=== PATIENT | female | born 1970 | race Caucasian/White ===

== ENCOUNTER 2020-10-27 07:47 | Inpatient (IN) ==
[2020-10-27] MEDS ORDERED: ONDANSETRON INJ 2 MG/ML 2 ML VIAL IV STA (07:54)
[2020-10-27] MEDS ORDERED: MoRPHine SULFATE 4 MG/ML 1 ML CARP\\VIAL IV PRN (07:54)
--- NOTE | 2020-10-27 07:59 | Emergency Department Note ---
Impression & Plan Closed fracture of left hip, Fall ED Provider Note NAME: ROSA ISELA CURTIS AGE: 50 SEX: F : 1970 ARRIVES VIA: Ambulance INFORMANT: Patient, prehospital personnel ED PROVIDER(S): Manny Cheng DO CHIEF COMPLAINT: Left hip pain HPI: The patient is a 50-year-old female who presented to the emergency department by ambulance for an evaluation of left-sided hip pain. The patient states that she had a trip and fall last evening at approximately 7 PM. She fell while she was with her dog. She fell onto her left hip directly. She did not strike her head. She has no loss of consciousness or headache. She denies having any neck pain or back pain. She was helped into her home by a neighbor. She states that she was able to bear weight initially but has since had worsening pain in the left hip. She was unable to bear weight this morning and called 911. The patient arrived via ambulance. The patient was splinted in comfort and was feeling much better prior to arrival. The patient does have a history of Parkinson's. She states that she does have a history of falls and fell on that hip 2 weeks ago. She denies having any numbness in the lower extremity. She has had no fever or cough. She has had no exposure to COVID-19 as far she knows. ROS: See above HPI for pertinent positives & negatives. A total of 10 systems reviewed and were otherwise negative. PAST MEDICAL HISTORY: See Below PAST SURGICAL HISTORY: See Below FAMILY HISTORY: See Below SOCIAL HISTORY: See Below HOME MEDICATIONS: See Below ALLERGIES: See Below VITALS: See Below PHYSICAL EXAMINATION: GENERAL: The patient is awake and alert. She is somewhat anxious appearing and appears to be uncomfortable. EYES: The conjunctivae are clear. The pupils are round and reactive. EARS, NOSE, MOUTH AND THROAT: The nose is without any evidence of any deformity. Mucous membranes are moist. Tongue is midline. NECK: The neck is nontender and supple. RESPIRATORY: Normal respiratory effort is noted there is no evidence of wheezing rhonchi or rales CARDIOVASCULAR: Regular rate and rhythm noted there no murmurs rubs or gallops normal S1 normal S2. GASTROINTESTINAL: The abdomen is soft. Abdomen is nontender. BACK: No midline tenderness or or step-off noted range of motion in flexion extension as well as rotation no signs of muscle spasm noted MUSCULOSKELETAL/EXTREMITIES: The left lower extremity is shortened. The patient has pain with range of motion testing of the left hip including internal and external rotation. There is no palpable tenderness of the left knee or left ankle. SKIN: There is no obvious evidence of any rash. Pulses are symmetric in both feet. NEUROLOGIC: Patient is awake alert and oriented x3. MEDICAL DECISION MAKING: The patient is a 50-year-old female who presented to the emergency department by ambulance after a fall. The patient fell onto her left hip sustaining a left hip fracture. She was treated with pain medication in the emergency department. I discussed the patient's laboratory and radiographic studies with her. On reevaluation she was significantly improved. [facility] They have agreed to evaluate the patient in the emergency department for further management and disposition. Likely the patient will have orthopedic evaluation and will likely require surgical intervention. She was agreeable with this plan. Triage Nursing notes reviewed. Prior medical records reviewed Vital Signs: reviewed and remarkable for elevated blood pressure. Differential diagnosis: Fracture, subluxation, dislocation, contusion, ligamentous injury, neurovascular, compartment syndrome, rhabdomyolysis, as well as other pathologies. ER treatment provided: See below Diagnostics interpreted by me: ECG: EKG was obtained in the emergency department. My interpretation is normal sinus rhythm at 85 bpm. There was no ectopy. Lateral T wave flattening was noted. This was compared to a tracing from July 15, 2019. No significant changes were noted. Cardiac Monitoring: An order was placed for continuous cardiac monitoring. The monitor shows a rate of 82 bpm with sinus rhythm. Laboratory studies: As stated above and show below. Imaging studies: See below Consultation(s): 0905: I discussed this case with Nicki who [facility]. Past Med/Surg History Medical History (Updated 10/27/20 @ 10:56 by Manny Cheng DO) ADD (attention deficit disorder) Bipolar disorder Cervical radiculopathy Cervicalgia Chronic migraine without aura Cochlear implant in place Depression Endometriosis Fibromyalgia Gastroesophageal reflux Hypothyroidism Myalgia and myositis Surgical History History of arthroscopy of shoulder History of cholecystectomy History of colonoscopy History of laparoscopy History of mastoidectomy History of oophorectomy S/P total abdominal hysterectomy Social History Smoking Status: Never smoker Hx Alcohol Use: Yes Hx Substance Use: No Preferred Language: Chadian Communication Ability: Effective Visual Impairment: No Limitations Hearing Ability: Normal Beliefs That Will Affect Care: None marital status: Current Living Situation: Alone current occupational status: disabled Feels Safe at Home: Yes Allergies Allergies Allergy/AdvReac Type Severity Reaction Status Date / Time venlafaxine Allergy Unknown itchiness Verified 10/27/20 08:22 Home Meds Home Medications Medication Instructions Recorded Confirmed alprazolam 0.25 mg tablet 0.125 mg PO TID tab 09/12/18 10/27/20 cholecalciferol (vitamin D3) 25 1,000 units PO QAM 09/12/18 10/27/20 mcg (1,000 unit) capsule dextroamphetamine 30 mg tablet 30 mg PO QAM tab 09/12/18 10/27/20 estradiol 1 mg tablet 1 mg PO QAM 09/12/18 10/27/20 levothyroxine 100 mcg capsule 100 mcg PO QAM 09/12/18 10/27/20 multivitamin 1 tab PO QAM 09/12/18 10/27/20 polyethylene glycol 3350 17 gram 17 gm PO UD PRN 09/12/18 10/27/20 oral powder packet rizatriptan 10 mg tablet 10 mg PO Q2H PRN 09/12/18 10/27/20 denosumab 60 mg/mL subcutaneous 60 mg SQ .q 6 month ml 11/26/18 10/27/20 syringe aripiprazole 10 mg tablet 10 mg PO HS 10/18/19 10/27/20 citalopram 40 mg tablet 40 mg PO QAM tab 04/27/20 10/27/20 atorvastatin 20 mg tablet 20 mg PO HS 07/29/20 10/27/20 calcium carbonate-vitamin D3 1 tab PO QAM 10/27/20 10/27/20 [Calcium + D] Results & Data (ED) Vital Signs Vital Signs - 24 hr 10/27/20 07:54 10/27/20 07:56 10/27/20 07:58 Temperature 36.7 C Temperature Source Oral Pulse Rate 93 H 80 92 H Respiratory Rate 22 13 Respiratory Effort / Characteristics Non-Labored Respiratory Depth Normal Respiratory Pattern Regular Blood Pressure 145/67 H 145/67 H Blood Pressure Mean 93 93 Blood Pressure Position Sitting Pulse Oximetry 100 Oxygen Delivery Method Room Air Sepsis Recent Fever Within 48 Hours No Sepsis New/Unexplained Change in Mental Status No Sepsis Action Taken by Nursing No Action Required 10/27/20 08:00 10/27/20 09:52 10/27/20 10:00 Temperature Temperature Source Pulse Rate 84 88 83 Respiratory Rate 17 15 19 Respiratory Effort / Characteristics Respiratory Depth Respiratory Pattern Blood Pressure Blood Pressure Mean Blood Pressure Position Pulse Oximetry Oxygen Delivery Method Sepsis Recent Fever Within 48 Hours Sepsis New/Unexplained Change in Mental Status Sepsis Action Taken by Nursing 10/27/20 10:01 10/27/20 10:02 10/27/20 10:30 Temperature Temperature Source Pulse Rate 82 78 Respiratory Rate 18 16 Respiratory Effort / Characteristics Respiratory Depth Respiratory Pattern Blood Pressure 142/90 H Blood Pressure Mean 110 Blood Pressure Position Pulse Oximetry Oxygen Delivery Method Room Air Sepsis Recent Fever Within 48 Hours Sepsis New/Unexplained Change in Mental Status Sepsis Action Taken by [facility] Medications Current Medication List: was personally reviewed by me Laboratory Data Attestation: I reviewed the patient's lab results. Result diagrams: 10/27/20 09:50 10/27/20 09:50 Lab Results 10/27/20 10/27/20 10/27/20 Range/Units 09:50 09:50 09:50 WBC 13.35 H (4.8-10.8) K/uL RBC 4.27 (4.2-5.4) M/uL Hgb 12.8 (12.0-16.0) g/dL Hct 38.8 (37-47) % MCV 90.9 (80-100) fL MCH 30.0 (25-34) pg MCHC 33.0 (32-36) g/dL RDW Std Deviation 47.0 H (36.4-46.3) fL RDW Coeff of Jose 14.3 (11.5-14.5) % Plt Count 280 (130-400) K/uL MPV 10.1 (7.4-10.4) fL Immature Gran % (Auto) 0.1 % Neut % (Auto) 92.2 % Lymph % (Auto) 6.6 % [place] % (Auto) 1.1 % Eos % (Auto) 0.0 % Baso % (Auto) 0.0 % Neut # (Auto) 12.30 H (1.4-6.5) K/uL Lymph # (Auto) 0.88 L (1.2-3.4) K/uL [place] # (Auto) 0.15 (0.11-0.59) K/uL Eos # (Auto) 0.00 (0-0.5) K/uL Baso # (Auto) 0.00 (0-0.2) K/uL Immature Gran # (Auto) 0.02 (0.00-0.02) K/uL PT 10.3 (9.0-12.0) Seconds INR 1.0 (0.9-1.1) APTT 26.2 (21.0-31.0) Seconds PTT Ratio 0.9 Sodium 139 (136-145) mmol/L Potassium 4.5 (3.5-5.1) mmol/L Chloride 108 H (98-107) mmol/L Carbon Dioxide 25 (21-32) mmol/L Anion Gap 5.0 (3-11) BUN 13 (7-18) mg/dl Creatinine 1.01 (0.6-1.2) mg/dl Est Cr Clr Drug Dosing 60.3 ml/min Est GFR ( Amer) 75.2 Est GFR (Non-Af Amer) 64.9 BUN/Creatinine Ratio 12.4 (10-20) Glucose 121 H (70-99) mg/dl Calcium 8.8 (8.5-10.1) mg/dl Total Bilirubin 0.4 (0.2-1) mg/dl AST 18 (15-37) U/L ALT 19 (12-78) U/L Alkaline Phosphatase 154 H (45-117) U/L Troponin I < 0.015 (0-0.045) ng/ml Total Protein 7.8 (6.4-8.2) gm/dl Albumin 3.1 L (3.4-5.0) gm/dl Globulin 4.7 H (2.5-4.0) gm/dl Albumin/Globulin Ratio 0.7 L (0.9-2) Lipase 51 L (73-393) U/L SARS-CoV-2 Ag (Rapid) (Negative) 10/27/20 Range/Units 10:38 WBC (4.8-10.8) K/uL RBC (4.2-5.4) M/uL Hgb (12.0-16.0) g/dL Hct (37-47) % MCV (80-100) fL MCH (25-34) pg MCHC (32-36) g/dL RDW Std Deviation (36.4-46.3) fL RDW Coeff of Jose (11.5-14.5) % Plt Count (130-400) K/uL MPV (7.4-10.4) fL Immature Gran % (Auto) % Neut % (Auto) % Lymph % (Auto) % [place] % (Auto) % Eos % (Auto) % Baso % (Auto) % Neut # (Auto) (1.4-6.5) K/uL Lymph # (Auto) (1.2-3.4) K/uL [place] # (Auto) (0.11-0.59) K/uL Eos # (Auto) (0-0.5) K/uL Baso # (Auto) (0-0.2) K/uL Immature Gran # (Auto) (0.00-0.02) K/uL PT (9.0-12.0) Seconds INR (0.9-1.1) APTT (21.0-31.0) Seconds PTT Ratio Sodium (136-145) mmol/L Potassium (3.5-5.1) mmol/L Chloride (98-107) mmol/L Carbon Dioxide (21-32) mmol/L Anion Gap (3-11) BUN (7-18) mg/dl Creatinine (0.6-1.2) mg/dl Est Cr Clr Drug Dosing ml/min Est GFR ( Amer) Est GFR (Non-Af Amer) BUN/Creatinine Ratio (10-20) Glucose (70-99) mg/dl Calcium (8.5-10.1) mg/dl Total Bilirubin (0.2-1) mg/dl AST (15-37) U/L ALT (12-78) U/L Alkaline Phosphatase (45-117) U/L Troponin I (0-0.045) ng/ml Total Protein (6.4-8.2) gm/dl Albumin (3.4-5.0) gm/dl Globulin (2.5-4.0) gm/dl Albumin/Globulin Ratio (0.9-2) Lipase (73-393) U/L SARS-CoV-2 Ag (Rapid) Negative (Negative) Administered Medications Morphine Sulfate (Morphine Sulfate 4 Mg/Ml 1 Ml Carp\Vial) 4 mg IV Q30M PRN PRN Reason: Pain Stop: 11/10/20 07:53 Last Admin: 10/27/20 08:07 Dose: 4 mg Documented by: [id number] Discontinued Medications Sodium Chloride (Nss) 500 mls @ 999 mls/hr IV .Q31M HEYDI Stop: 10/27/20 08:30 Last Infusion: 10/27/20 08:38 Dose: 0 mls/hr Documented by: [id number] Admin: 10/27/20 08:07 Dose: 999 mls/hr Documented by: [id number] Ondansetron HCl (Ondansetron Inj 2 Mg/Ml 2 Ml Vial) 4 mg IV NOW STA Stop: 10/27/20 07:55 Last Admin: 10/27/20 08:07 Dose: 4 mg Documented by: [id number] Imaging Data Radiologist's Impression: Patient: ROSA ISELA CURTIS Admit Date: 10/27/20 MR#: [id number] Address1: [address] [place] [address] Acct ID:[id number] Address2: Date: 1970 [facility] Zip: [place] [address] Age: 50 Location: ED Sex: F Room/Bed: Att Phy: Diagnosis: FALL Prerna Phy: Shonda Coles MD Service Date: 10/27/20 [facility] Phy: Interpreting Phy: Moses Pereira MD Admit Phy: Ordering Phy: Manny Cheng DO cc: ~ XR chest 1V not portable HISTORY: Left hip fracture. Preop. COMPARISON: Chest 07/15/2019. FINDINGS: The lungs are clear. Cardiac silhouette is normal in size. No pleural effusions. No pneumothorax. IMPRESSION: No acute process. ACT 112: Negative or not required by law. Electronically signed by: Moses Pereira M.D. 10/27/2020 8:43 AM Dictated: 10/27/20841 Transcribed: 10/27/20841 Patient: ROSA ISELA CURTIS Admit Date: 10/27/20 MR#: [id number] Address1: [address] [place] [address] Acct ID:[id number] Address2: Date: 1970 [facility] Zip: [place] [id number] Age: 50 Location: ED Sex: F Room/Bed: Att Phy: Diagnosis: FALL Prerna Phy: Shonda Coles MD Service Date: 10/27/20 [facility] Phy: Interpreting Phy: Moses Pereira MD Admit Phy: Ordering Phy: Manny Cheng, DO cc: ~ XR hip LT 2V w pelvis CLINICAL HISTORY: Fall.Left hip pain. COMPARISON STUDY: Left hip 10/19/2020. FINDINGS: Mildly displaced left femoral neck fracture. This demonstrates up to 11 mm of superior displacement. No dislocation. The visualized pelvic bones and right hip are intact. IMPRESSION: Mildly displaced left femoral neck fracture. ACT 112: Negative or not required by law. Electronically signed by: Moses Pereira M.D. 10/27/2020 8:42 AM Dictated: 10/27/20840 Transcribed: 10/27/20840 Blood Pressure Blood Pressure Findings: Elevated blood pressure Blood Pressure Disposition: further management by hospitalist Discharge Plan Visit Data Chief Complaint: Fall ED Provider: Manny Cheng Discharge Problem: Closed fracture of left hip, Fall Patient Disposition: Being Evaluated by Hospitalist Condition: Good Forms Stand Alone Forms: [facility] [employer] Prescriptions Prescriptions: No Action atorvastatin [Lipitor] 20 mg tablet 20 mg PO HS RF: 0 rizatriptan 10 mg tablet 10 mg PO Q2H PRN (Reason: Migraine Headache) RF: 0 alprazolam [Xanax] 0.25 mg tablet 0.125 mg PO TID RF: 0 cholecalciferol (vitamin D3) 1,000 unit capsule 1,000 units PO QAM RF: 0 dextroamphetamine 30 mg tablet 30 mg PO QAM RF: 0 estradiol 1 mg tablet 1 mg PO QAM RF: 0 levothyroxine 100 mcg capsule 100 mcg PO QAM RF: 0 multivitamin tablet 1 tab PO QAM RF: 0 polyethylene glycol 3350 [Miralax] 17 gram powder in packet 17 gm PO UD PRN (Reason: Constipation) RF: 0 citalopram 40 mg tablet 40 mg PO QAM RF: 0 denosumab [Prolia] 60 mg/mL syringe 60 mg SQ .q 6 month RF: 0 aripiprazole [Abilify] 10 mg tablet 10 mg PO HS RF: 0 calcium carbonate-vitamin D3 [Calcium + D] 600 mg(1,500mg) -200 unit Tablet 1 tab PO QAM RF: 0 Referrals Referrals: Shonda Coles MD [Primary Care Provider] - Discharge Problem: Closed fracture of left hip Qualifiers: Encounter type: initial encounter Qualified Code(s): S72.002A - Fracture of unspecified part of neck of left femur, initial encounter for closed fracture Fall Qualifiers: Encounter type: initial encounter Qualified Code(s): W19.XXXA - Unspecified fall, initial encounter
[2020-10-27] MEDS ORDERED: SODIUM CHLORIDE 0.9% 500 ML IV SCH (08:00)
--- NOTE | 2020-10-27 08:44 | XRay Report ---
XR chest 1V not portable HISTORY: Left hip fracture. Preop. COMPARISON: Chest 07/15/2019. FINDINGS: The lungs are clear. Cardiac silhouette is normal in size. No pleural effusions. No pneumot horax. IMPRESSION: No acute process. ACT 112: Negative or not required by law. Electronically signed by: Moses Pereira M.D. 10/27/2020 8:43 AM
--- NOTE | 2020-10-27 08:44 | XRay Report ---
XR hip LT 2V w pelvis CLINICAL HISTORY: Fall.Left hip pain. COMPARISON STUDY: Left hip 10/19/2020. FINDINGS: Mildly displaced left femoral neck fracture. This demonstrates up to 11 mm of superior disp lacement. No dislocation. The visualized pelvic bones and right hip are intact. IMPRESSION: Mildly displaced left femoral neck fracture. ACT 112: Negative or not required by law. Electronically signed by: Moses Pereira M.D. 10/27/2020 8:42 AM
[2020-10-27 10:00] LABS: Hematocrit (blood only) 38.8 % (37-47); Hemoglobin 12.8 g/dL (12.0-16.0); Immature Granulocytes # (auto) 0.02 K/uL (0.00-0.02); Immature Granulocytes % (auto) 0.1 %; Lymphocytes # (auto) 0.88 K/uL (1.2-3.4); Lymphocytes % (auto) 6.6 %; Mean Corpuscular Volume 90.9 fL (80-100); Mean Platelet Volume 10.1 fL (7.4-10.4); Monocytes # (auto) 0.15 K/uL (0.11-0.59); Monocytes % (auto) 1.1 %; Neutrophils % (auto) 92.2 %; Platelet Count 280 K/uL (130-400); RDW Coefficient of Variation 14.3 % (11.5-14.5); Red Blood Count 4.27 M/uL (4.2-5.4); White Blood Count 13.35 K/uL (4.8-10.8)
[2020-10-27 10:14] LABS: Partial Thromboplastin Ratio 0.9; Partial Thromboplastin Time 26.2 Seconds (21.0-31.0); Prothrombin Time 10.3 Seconds (9.0-12.0)
[2020-10-27 10:19] LABS: Alanine Aminotransferase 19 U/L (12-78); Albumin Level 3.1 gm/dl (3.4-5.0); Aspartate Aminotransferase 18 U/L (15-37); BUN Creatinine Ratio 12.4 (10-20); Blood Urea Nitrogen 13 mg/dl (7-18); Calcium 8.8 mg/dl (8.5-10.1); Carbon Dioxide 25 mmol/L (21-32); Chloride 108 mmol/L (98-107); Creatinine Clr Calc Pharmacy 60.3 ml/min; Est GFR (African American) 75.2; Est GFR (Non-African American) 64.9; Glucose 121 mg/dl (70-99); Lipase 51 U/L (73-393); Potassium 4.5 mmol/L (3.5-5.1); Sodium 139 mmol/L (136-145)
[2020-10-27 10:23] LABS: Albumin Globulin Ratio 0.7 (0.9-2); Alkaline Phosphatase 154 U/L (45-117); Bilirubin,Total 0.4 mg/dl (0.2-1); Globulin 4.7 gm/dl (2.5-4.0); Total Protein 7.8 gm/dl (6.4-8.2); Troponin I < 0.015 ng/ml (0-0.045)
--- NOTE | 2020-10-27 10:34 | History & Physical Report ---
Date of Service October 27, 2020 Assessment & Plan (1) Closed fracture of left hip: s/ p fall -tripped and lost balanced landed on her left side . Xray of hip Left femoral neck non displaced fall Ortho eval appreciated plan for possible Hip surgery /ORIF tomorrow pt has acceptable risk to proceed for scheduled hip surgery no underlying cardiac or pulmonary disease /no other testing or imaging needed for pre op or anesthesia clearance . Hypothyroidism : cont Levothyroxine DVT PROPHYLAXIS : SCD and teds will need pharmacological anticoagulation post hip surgery as per orthopedics protocol CODE status : full code DISPOSITION : PT/OT eval post hip surgery discharge planning will be determined depending on pt's recovery after orthopedics surgery History of Present Illness Chief Complaint: fall /pain on left hip Primary Care Provider: Shonda Coles MD This is a a 50-year-old female with past medical history of hypothyroidism, chronic migraine, GERD, presents to the ER with complaint of acute pain on the left hip. pt sustained a fall on left side yesterday afternoon as she was walking her dog and tripped , lost her balance, landed on her left side . in ER Xray of hip mildly displaced left femoral neck fracture . pt sustained a fall on left hip approx a week ago , was seen at ER , images shows no fracture , had pain and discomfort on left hip no complain of chest pain , SOB , no dizzy spell or lightheadedness no fever or chills pt is admitted to medical floor Ortho eval requested for possible surgery of left femoral neck fx Allergies Allergy/AdvReac Type Severity Reaction Status Date / Time venlafaxine Allergy Unknown itchiness Verified 10/27/20 08:22 Home Medications Medication Instructions Recorded Confirmed Type alprazolam 0.25 mg tablet 0.125 mg PO TID tab 09/12/18 10/27/20 History cholecalciferol (vitamin D3) 25 1,000 units PO QAM 09/12/18 10/27/20 History mcg (1,000 unit) capsule dextroamphetamine 30 mg tablet 30 mg PO QAM tab 09/12/18 10/27/20 History estradiol 1 mg tablet 1 mg PO QAM 09/12/18 10/27/20 History levothyroxine 100 mcg capsule 100 mcg PO QAM 09/12/18 10/27/20 History multivitamin 1 tab PO QAM 09/12/18 10/27/20 History polyethylene glycol 3350 17 gram 17 gm PO UD PRN 09/12/18 10/27/20 History oral powder packet rizatriptan 10 mg tablet 10 mg PO Q2H PRN 09/12/18 10/27/20 History denosumab 60 mg/mL subcutaneous 60 mg SQ .q 6 month ml 11/26/18 10/27/20 History syringe aripiprazole 10 mg tablet 10 mg PO HS 10/18/19 10/27/20 History citalopram 40 mg tablet 40 mg PO QAM tab 04/27/20 10/27/20 History atorvastatin 20 mg tablet 20 mg PO HS 07/29/20 10/27/20 History calcium carbonate-vitamin D3 1 tab PO QAM 10/27/20 10/27/20 History [Calcium + D] Past Med/Surg History Medical History ADD (attention deficit disorder) Bipolar disorder Cervical radiculopathy Cervicalgia Chronic migraine without aura Cochlear implant in place Depression Endometriosis Fibromyalgia Gastroesophageal reflux Hypothyroidism Myalgia and myositis Surgical History History of arthroscopy of shoulder History of cholecystectomy History of colonoscopy History of laparoscopy History of mastoidectomy History of oophorectomy S/P total abdominal hysterectomy Social History Smoking Status: Never smoker Hx Alcohol Use: Yes Alcohol type: wine Hx Substance Use: No Preferred Language: Bangladeshi Communication Ability: Effective Visual Impairment: No Limitations Hearing Ability: Normal Beliefs That Will Affect Care: None marital status: Current Living Situation: Alone current occupational status: disabled Other Information That Helps Us Care for You: No Feels Safe at Home: Yes Safety Concerns: Feels Safe At This Time Assistive Devices: None Assistive Devices Comment: Cochlear implent left, not with pt. Review of Systems Review of Systems: All systems reviewed & are unremarkable except as noted in HPI & below Constitutional: no fever and no chills Respiratory: no cough and no dyspnea on exertion Cardiovascular: no chest pain, no orthopnea and no syncope Musculoskeletal: as per Subjective / HPI left hip pain s/p fall Physical Exam Constitutional: WD/WN, vitals as above Eyes: PERRL, conjunctivae normal, anicteric sclerae ENMT: external ear and nose normal, oropharynx normal Neck: trachea midline, no thyromegaly Respiratory: normal respiratory effort, lungs clear to auscultation Cardiovascular: RRR, no murmur, no edema Gastrointestinal (Abdomen): normal bowel sounds, soft, nontender, no hepatosplenomegaly Musculoskeletal: Hip: + limited ROM of hip (left hip pain ) Skin: no rashes, warm and dry Neurologic: PERRL, EOMI, accommodation nl, no face palsy, no dysarthria Psychiatric: A+Ox3, euthymic affect Results & Data Results & Data ([facility]) Vital Signs (Past 12 Hours) Vital Signs Temp Pulse Resp BP Pulse Ox 10/27/20 07:54 36.7 C 93 H 22 145/67 H 100 Code Status & VTE Plan VTE Prophylaxis Plan VTE Prophylaxis will be ordered: Yes (1) Closed fracture of left hip Encounter type: initial encounter Qualified Code(s): S72.002A - Fracture of unspecified part of neck of left femur, initial encounter for closed fracture
[2020-10-27] MEDS ORDERED: bisacodyL 10 MG SUPP PR PRN (12:10)
[2020-10-27] MEDS ORDERED: NALOXONE HCL 0.4 MG/1 ML VIAL/CARP IV PRN (12:10)
[2020-10-27] MEDS ORDERED: ONDANSETRON INJ 2 MG/ML 2 ML VIAL IV PRN (12:10)
[2020-10-27] MEDS ORDERED: RIZATRIPTAN BENZOATE 10 MG TAB PO PRN (12:10)
[2020-10-27] MEDS ORDERED: MAGNESIUM HYDROXIDE SUSP 30 ML UDC PO PRN (12:10)
[2020-10-27] MEDS ORDERED: POLYETHYLENE (MIRALAX) 17 GM PACK PO PRN (12:10)
[2020-10-27] MEDS: MoRPHine SULFATE 2 MG/ML CARP IV PRN ×2 (12:54→18:24)
[2020-10-27] MEDS: ALPRAZolam 0.25 MG TABLET PO SCH ×2 (13:32→20:23)
[2020-10-27] MEDS ORDERED: Nursing to Pharmacy Communication SCH (13:45)
[2020-10-27] MEDS: oxyCODONE HCL IR 5 MG TAB (IMMEDIATE RELEASE) PO PRN ×3 (14:54→23:28)
--- NOTE | 2020-10-27 15:12 | Orthopedic Consultation ---
Date of Consultation October 27, 2020 Assessment & Plan (1) Closed fracture of left hip: X-rays reviewed. Displaced left femoral neck fracture. I have discussed the case with the [facility] physicians. Patient will likely need a total hip replacement for this type of fracture. I will wait to hear from the physicians to finalize plans but will let the patient eat today and make her n.p.o. after midnight for possible surgery tomorrow. She seems fairly comfortable at this time. If worsening pain, consider 5 pounds of Walton's traction for left lower extremity. History of Present Illness Reason for Consultation: Left Displaced Femoral Neck Fracture Attending Physician: Liat Noel MD History of Present Illness 50-year-old white female who states that she had fallen approximately 1/2 to 2 weeks ago onto her left hip. She had pain several days with ambulation and was evaluated in the emergency room on the seventh of this month. X-rays were taken at that time and there was no fracture found. She was sent home on crutches, weightbearing as tolerated. She states she continued to have some pain in the hip but then inadvertently fell over her dog while trying to take him for a walk. After the fall, she had immediate worsening pain in her left hip and groin and was having difficulty ambulating. She was helped into her house and the ambulance was called. She was brought to the emergency room today where x-rays revealed a left displaced femoral neck fracture. We have been asked to see her for her hip fracture. Allergies Allergy/AdvReac Type Severity Reaction Status Date / Time venlafaxine Allergy Unknown itchiness Verified 10/27/20 08:22 Home Medications Medication Instructions Recorded Confirmed Type alprazolam 0.25 mg tablet 0.125 mg PO TID tab 09/12/18 10/27/20 History cholecalciferol (vitamin D3) 25 1,000 units PO QAM 09/12/18 10/27/20 History mcg (1,000 unit) capsule dextroamphetamine 30 mg tablet 30 mg PO QAM tab 09/12/18 10/27/20 History estradiol 1 mg tablet 1 mg PO QAM 09/12/18 10/27/20 History levothyroxine 100 mcg capsule 100 mcg PO QAM 09/12/18 10/27/20 History multivitamin 1 tab PO QAM 09/12/18 10/27/20 History polyethylene glycol 3350 17 gram 17 gm PO UD PRN 09/12/18 10/27/20 History oral powder packet rizatriptan 10 mg tablet 10 mg PO Q2H PRN 09/12/18 10/27/20 History denosumab 60 mg/mL subcutaneous 60 mg SQ .q 6 month ml 11/26/18 10/27/20 History syringe aripiprazole 10 mg tablet 10 mg PO HS 10/18/19 10/27/20 History citalopram 40 mg tablet 40 mg PO QAM tab 04/27/20 10/27/20 History atorvastatin 20 mg tablet 20 mg PO HS 07/29/20 10/27/20 History calcium carbonate-vitamin D3 1 tab PO QAM 10/27/20 10/27/20 History [Calcium + D] Patient History Medical History ADD (attention deficit disorder) Bipolar disorder Cervical radiculopathy Cervicalgia Chronic migraine without aura Cochlear implant in place Depression Endometriosis Fibromyalgia Gastroesophageal reflux Hypothyroidism Myalgia and myositis Surgical History History of arthroscopy of shoulder History of cholecystectomy History of colonoscopy History of laparoscopy History of mastoidectomy History of oophorectomy S/P total abdominal hysterectomy Social History Smoking Status: Never smoker Hx Alcohol Use: Yes Alcohol type: wine Hx Substance Use: No Preferred Language: Bhutanese Communication Ability: Effective Visual Impairment: No Limitations Hearing Ability: Normal Beliefs That Will Affect Care: None marital status: Current Living Situation: Alone current occupational status: disabled Other Information That Helps Us Care for You: No Feels Safe at Home: Yes Safety Concerns: Feels Safe At This Time Assistive Devices: None Assistive Devices Comment: Cochlear implent left, not with pt. Review of Systems Review of Systems: All systems reviewed & are unremarkable except as noted in HPI & below Physical Exam Physical Exam: Patient is a 50-year-old white female who appears her stated age. She is pleasant and cooperative. No acute distress. Alert and oriented x3. Focusing the exam on the left lower extremity, she has noticeable shortened left lower extremity compared to the right. No range of motion is done with the left hip due to fracture. She has some mild discomfort of her left knee on palpation but there is no noted swelling compared to the right. There is no areas abrasions or bruises. No obvious areas of bruising or abrasions on the left lateral hip but swelling is noted. She has good range of motion of her left ankle and toes. Of which are nontender. Right lower extremity is within normal limits and has good range of motion of her right hip, knee, and ankle. Upper extremities are unaffected at this time. She is nontender at the shoulders, elbows, and wrists. On palpation of her neck, she states she does have some cervical discomfort but is not accentuated from what she normally has. She denies any new thoracic or lumbar pain at this time. There is no gross motor or sensory loss seen at this time. Distal pulses are equal bilaterally of the upper and lower extremities. Results & Data ([facility]) Vital Signs (Past 12 Hours) Vital Signs Temp Pulse Pulse Resp BP BP Pulse Ox 10/27/20 12:14 37.0 C 94 H 16 141/82 H 98 10/27/20 11:00 90 16 10/27/20 10:30 78 16 10/27/20 10:02 82 18 142/90 H 10/27/20 10:00 83 19 10/27/20 09:52 88 15 10/27/20 08:00 84 17 10/27/20 07:58 92 H 10/27/20 07:56 80 13 145/67 H 10/27/20 07:54 36.7 C 93 H 22 145/67 H 100 Diagnostic Findings Patient: ROSA ISELA CURTIS Date: 10/27/20#: [id number]: 81 [facility] ID:[id number]: Date: 1970[facility] Zip: [place], [place] [address]Ghe: 50Location: EDSex: FRoom/Bed:Att Phy:Diagnosis: FALLPri Phy: Shonda Coles MDService Date: 10/27/20Fam Phy:Interpreting Phy: Moses Pereira MDAdmit Phy: Ordering Phy: Manny Cheng DO cc: ~ XR hip LT 2V w pelvis CLINICAL HISTORY: Fall.Left hip pain. COMPARISON STUDY: Left hip 10/19/2020. FINDINGS: Mildly displaced left femoral neck fracture. This demonstrates up to 11 mm of superior displacement. No dislocation. The visualized pelvic bones and right hip are intact. IMPRESSION: Mildly displaced left femoral neck fracture. Laboratory Results WBC 13.35 K/uL (4.8-10.8) H 10/27/20 09:50 RBC 4.27 M/uL (4.2-5.4) 10/27/20 09:50 Hgb 12.8 g/dL (12.0-16.0) 10/27/20 09:50 Hct 38.8 % (37-47) 10/27/20 09:50 MCV 90.9 fL (80-100) 10/27/20 09:50 MCH 30.0 pg (25-34) 10/27/20 09:50 MCHC 33.0 g/dL (32-36) 10/27/20 09:50 RDW Std Deviation 47.0 fL (36.4-46.3) H 10/27/20 09:50 RDW Coeff of Jose 14.3 % (11.5-14.5) 10/27/20 09:50 Plt Count 280 K/uL (130-400) 10/27/20 09:50 MPV 10.1 fL (7.4-10.4) 10/27/20 09:50 Immature Gran % (Auto) 0.1 % 10/27/20 09:50 Neut % (Auto) 92.2 % 10/27/20 09:50 Lymph % (Auto) 6.6 % 10/27/20 09:50 [place] % (Auto) 1.1 % 10/27/20 09:50 Eos % (Auto) 0.0 % 10/27/20 09:50 Baso % (Auto) 0.0 % 10/27/20 09:50 Neut # (Auto) 12.30 K/uL (1.4-6.5) H 10/27/20 09:50 Lymph # (Auto) 0.88 K/uL (1.2-3.4) L 10/27/20 09:50 [place] # (Auto) 0.15 K/uL (0.11-0.59) 10/27/20 09:50 Eos # (Auto) 0.00 K/uL (0-0.5) 10/27/20 09:50 Baso # (Auto) 0.00 K/uL (0-0.2) 10/27/20 09:50 Immature Gran # (Auto) 0.02 K/uL (0.00-0.02) 10/27/20 09:50 PT 10.3 Seconds (9.0-12.0) 10/27/20 09:50 INR 1.0 (0.9-1.1) 10/27/20 09:50 APTT 26.2 Seconds (21.0-31.0) 10/27/20 09:50 PTT Ratio 0.9 10/27/20 09:50 Sodium 139 mmol/L (136-145) 10/27/20 09:50 Potassium 4.5 mmol/L (3.5-5.1) 10/27/20 09:50 Chloride 108 mmol/L (98-107) H 10/27/20 09:50 Carbon Dioxide 25 mmol/L (21-32) 10/27/20 09:50 Anion Gap 5.0 (3-11) 10/27/20 09:50 BUN 13 mg/dl (7-18) 10/27/20 09:50 Creatinine 1.01 mg/dl (0.6-1.2) 10/27/20 09:50 Est Cr Clr Drug Dosing 60.3 ml/min 10/27/20 09:50 Est GFR ( Amer) 75.2 10/27/20 09:50 Est GFR (Non-Af Amer) 64.9 10/27/20 09:50 BUN/Creatinine Ratio 12.4 (10-20) 10/27/20 09:50 Glucose 121 mg/dl (70-99) H 10/27/20 09:50 Calcium 8.8 mg/dl (8.5-10.1) 10/27/20 09:50 Total Bilirubin 0.4 mg/dl (0.2-1) 10/27/20 09:50 AST 18 U/L (15-37) 10/27/20 09:50 ALT 19 U/L (12-78) 10/27/20 09:50 Alkaline Phosphatase 154 U/L (45-117) H 10/27/20 09:50 Troponin I < 0.015 ng/ml (0-0.045) 10/27/20 09:50 Total Protein 7.8 gm/dl (6.4-8.2) 10/27/20 09:50 Albumin 3.1 gm/dl (3.4-5.0) L 10/27/20 09:50 Globulin 4.7 gm/dl (2.5-4.0) H 10/27/20 09:50 Albumin/Globulin Ratio 0.7 (0.9-2) L 10/27/20 09:50 Lipase 51 U/L (73-393) L 10/27/20 09:50 25-OH Vitamin D Total 53.8 ng/ml (30-100) 10/27/20 12:33 SARS-CoV-2 Ag (Rapid) Negative (Negative) 10/27/20 10:38 Blood Type O Positive 10/27/20 12:33 Antibody Screen NEGATIVE 10/27/20 12:33 (1) Closed fracture of left hip Encounter type: initial encounter Qualified Code(s): S72.002A - Fracture of unspecified part of neck of left femur, initial encounter for closed fracture
--- NOTE | 2020-10-27 18:25 | XRay Report ---
XR femur LT 2V routine CLINICAL HISTORY: Fracture. COMPARISON: Left hip radiographs October 27, 2020 at 8:17 AM. FINDINGS: Note is made of an acute displaced left femoral neck fracture. No distal left femoral frac ture is noted. There is no left knee joint effusion. IMPRESSION: Acute displaced left femoral neck fracture. ACT 112: Negative or not required by law. Electronically signed by: Nam Perdomo M.D. 10/27/2020 6:23 PM
[2020-10-27] MEDS: DOCUSATE SODIUM/SENNA 50/8.6MG TAB PO SCH (20:23)
[2020-10-27] MEDS: ARIPiprazole 10 MG TAB PO SCH (20:23)
[2020-10-27] MEDS: ATORVASTATIN 20 MG TAB PO SCH (20:23)
[2020-10-28] MEDS: LEVOTHYROXINE SODIUM 100 MCG TABLET PO SCH (05:37)
[2020-10-28] MEDS: oxyCODONE HCL IR 5 MG TAB (IMMEDIATE RELEASE) PO PRN (05:37)
[2020-10-28 05:42] LABS: Hemoglobin 12.1 g/dL (12.0-16.0); Mean Corpuscular Hemoglobin 29.2 pg (25-34); Mean Corpuscular Hgb Conc 31.8 g/dL (32-36); Mean Corpuscular Volume 91.8 fL (80-100); Mean Platelet Volume 10.3 fL (7.4-10.4); Platelet Count 268 K/uL (130-400); RDW Coefficient of Variation 14.6 % (11.5-14.5); RDW Standard Deviation 49.5 fL (36.4-46.3); Red Blood Count 4.14 M/uL (4.2-5.4)
--- NOTE | 2020-10-28 05:50 | Electrocardiogram Report ---
Test Reason : Blood Pressure : / mmHG Vent. Rate : 085 BPM Atrial Rate : 085 BPM P-R Int : 128 ms QRS Dur : 076 ms QT Int : 398 ms P-R-T Axes : 047 013 018 degrees QTc Int : 473 ms Poor data quality, interpretation may be adversely affected Normal sinus rhythm Nonspecific T wave abnormality When compared with ECG of 15-JUL-2019 17:33, No significant change was found Confirmed by Conor Guy ([id number]) on 10/28/2020 5:50:33 AM Referred By: REFERRED SELF Confirmed By:Conor Guy
[2020-10-28 06:07] LABS: BUN Creatinine Ratio 13.5 (10-20); Calcium 8.2 mg/dl (8.5-10.1); Creatinine Clr Calc Pharmacy 64.9 ml/min; Est GFR (African American) 63.6; Est GFR (Non-African American) 54.9; Potassium 4.1 mmol/L (3.5-5.1)
[2020-10-28] MEDS ORDERED: BUPIVACAINE 0.5 % 5 MG/1 ML PF 10ML VIAL ONE (06:55)
[2020-10-28] MEDS: DEXTROAMPHETAMINE/AMPHETAMINE ER 10 MG CAP PO SCH (08:09)
[2020-10-28] MEDS: ALPRAZolam 0.25 MG TABLET PO SCH ×3 (08:10→22:04)
[2020-10-28] MEDS: CITALOPRAM 40 MG TAB PO SCH (08:11)
[2020-10-28] MEDS: CALCIUM 600MG + VIT D 400 IU TAB PO SCH (08:11)
[2020-10-28] MEDS: CHOLECALCIFEROL 1,000 UNITS 25 MCG TAB PO SCH (08:11)
[2020-10-28] MEDS: MULTIVITAMIN TAB PO SCH (08:11)
[2020-10-28] MEDS: estradioL 1 MG TAB PO SCH (08:12)
[2020-10-28] MEDS ORDERED: LIDOCAINE HCL 2% 2 ML VIAL/AMP(20MG/ML) INFIL ONE (08:28)
[2020-10-28] MEDS ORDERED: PROPOFOL IV EMULSION 10 MG/ML 20 ML VIAL IV ONE ×3 (08:28→15:18)
[2020-10-28] MEDS ORDERED: MIDAZOLAM HCL 1 MG/ML 2ML VIAL ONE (08:28)
[2020-10-28] MEDS ORDERED: fentaNYL citrate 100 MCG/2 ML VIAL ONE (08:29)
--- NOTE | 2020-10-28 09:20 | Hospitalist Progress Note ---
Date of Service October 28, 2020 Assessment & Plan (1) Closed fracture of left hip: s/ p mechanical fall -tripped and lost balanced landed on her left side . Xray of hip - Acute displaced Left femoral neck fracture Ortho eval appreciated plan for possible MIRIAM later today (10/28/20) w/ Dr. Ferguson pt has acceptable risk to proceed for scheduled hip surgery no underlying cardiac or pulmonary disease /no other testing or imaging needed for pre op or anesthesia clearance . Hypothyroidism : cont Levothyroxine DVT PROPHYLAXIS : SCD and teds will need pharmacological anticoagulation post hip surgery as per orthopedics protocol CODE status : full code DISPOSITION : PT/OT eval post hip surgery discharge planning will be determined depending on pt's recovery after orthopedics surgery Admission and Anticipated Discharge Date Admission Date: October 27, 2020 Subjective Pt is laying in bed in NAD, reports left hip pain. No fever, chills, chest pain, shortness of breath. No abd. pain, nausea/vomiting. Review of Systems Review of Systems: All systems reviewed & are unremarkable except as noted in HPI & below Constitutional: no fever and no chills Respiratory: no cough and no dyspnea Cardiovascular: no chest pain and no palpitations Gastrointestinal: no abdominal pain and no vomiting Musculoskeletal: as per Subjective / HPI left hip pain s/p fall Physical Exam Physical Exam: Constitutional: WD/WN, vitals as above Eyes: PERRL, conjunctivae normal, anicteric sclerae ENMT: external ear and nose normal, oropharynx normal Neck: trachea midline, no thyromegaly Respiratory: normal respiratory effort, lungs clear to auscultation Cardiovascular: RRR, no murmur, no edema Gastrointestinal (Abdomen): normal bowel sounds, soft, nontender, no hepatosplenomegaly Musculoskeletal: Hip: + limited ROM of hip (left hip pain ) Skin: no rashes, warm and dry Neurologic: PERRL, EOMI, no face palsy, no dysarthria Psychiatric: A+Ox3, euthymic affect Results & Data Results & Data ([facility]) Vital Signs (Past 12 Hours) Vital Signs Temp Pulse Resp BP Pulse Ox 10/28/20 07:52 37.1 C 101 H 16 135/79 94 10/27/20 23:17 36.8 C 97 H 16 115/80 92 Laboratory Results 10/28/20 10/28/20 10/27/20 Range/Units 05:18 05:18 16:30 WBC 9.50 (4.8-10.8) K/uL RBC 4.14 L (4.2-5.4) M/uL Hgb 12.1 (12.0-16.0) g/dL Hct 38.0 (37-47) % MCV 91.8 (80-100) fL MCH 29.2 (25-34) pg MCHC 31.8 L (32-36) g/dL RDW Std Deviation 49.5 H (36.4-46.3) fL RDW Coeff of Jose 14.6 H (11.5-14.5) % Plt Count 268 (130-400) K/uL MPV 10.3 (7.4-10.4) fL Immature Gran % (Auto) % Neut % (Auto) % Lymph % (Auto) % [place] % (Auto) % Eos % (Auto) % Baso % (Auto) % Neut # (Auto) (1.4-6.5) K/uL Lymph # (Auto) (1.2-3.4) K/uL [place] # (Auto) (0.11-0.59) K/uL Eos # (Auto) (0-0.5) K/uL Baso # (Auto) (0-0.2) K/uL Immature Gran # (Auto) (0.00-0.02) K/uL PT (9.0-12.0) Seconds INR (0.9-1.1) APTT (21.0-31.0) Seconds PTT Ratio Sodium 136 (136-145) mmol/L Potassium 4.1 (3.5-5.1) mmol/L Chloride 105 (98-107) mmol/L Carbon Dioxide 27 (21-32) mmol/L Anion Gap 4.0 (3-11) BUN 16 (7-18) mg/dl Creatinine 1.16 (0.6-1.2) mg/dl Est Cr Clr Drug Dosing 64.9 ml/min Est GFR ( Amer) 63.6 Est GFR (Non-Af Amer) 54.9 BUN/Creatinine Ratio 13.5 (10-20) Glucose 123 H (70-99) mg/dl Calcium 8.2 L (8.5-10.1) mg/dl Total Bilirubin (0.2-1) mg/dl AST (15-37) U/L ALT (12-78) U/L Alkaline Phosphatase (45-117) U/L Troponin I (0-0.045) ng/ml Total Protein (6.4-8.2) gm/dl Albumin (3.4-5.0) gm/dl Globulin (2.5-4.0) gm/dl Albumin/Globulin Ratio (0.9-2) Lipase (73-393) U/L 25-OH Vitamin D Total (30-100) ng/ml COVID-19 Eval Order SARS-CoV-2, RNA, NAAT NEGATIVE (NEGATIVE) SARS-CoV-2 Ag (Rapid) (Negative) Blood Type Antibody Screen 10/27/20 10/27/20 10/27/20 Range/Units 16:30 12:33 12:33 WBC (4.8-10.8) K/uL RBC (4.2-5.4) M/uL Hgb (12.0-16.0) g/dL Hct (37-47) % MCV (80-100) fL MCH (25-34) pg MCHC (32-36) g/dL RDW Std Deviation (36.4-46.3) fL RDW Coeff of Jose (11.5-14.5) % Plt Count (130-400) K/uL MPV (7.4-10.4) fL Immature Gran % (Auto) % Neut % (Auto) % Lymph % (Auto) % [place] % (Auto) % Eos % (Auto) % Baso % (Auto) % Neut # (Auto) (1.4-6.5) K/uL Lymph # (Auto) (1.2-3.4) K/uL [place] # (Auto) (0.11-0.59) K/uL Eos # (Auto) (0-0.5) K/uL Baso # (Auto) (0-0.2) K/uL Immature Gran # (Auto) (0.00-0.02) K/uL PT (9.0-12.0) Seconds INR (0.9-1.1) APTT (21.0-31.0) Seconds PTT Ratio Sodium (136-145) mmol/L Potassium (3.5-5.1) mmol/L Chloride (98-107) mmol/L Carbon Dioxide (21-32) mmol/L Anion Gap (3-11) BUN (7-18) mg/dl Creatinine (0.6-1.2) mg/dl Est Cr Clr Drug Dosing ml/min Est GFR ( Amer) Est GFR (Non-Af Amer) BUN/Creatinine Ratio (10-20) Glucose (70-99) mg/dl Calcium (8.5-10.1) mg/dl Total Bilirubin (0.2-1) mg/dl AST (15-37) U/L ALT (12-78) U/L Alkaline Phosphatase (45-117) U/L Troponin I (0-0.045) ng/ml Total Protein (6.4-8.2) gm/dl Albumin (3.4-5.0) gm/dl Globulin (2.5-4.0) gm/dl Albumin/Globulin Ratio (0.9-2) Lipase (73-393) U/L 25-OH Vitamin D Total 53.8 (30-100) ng/ml COVID-19 Eval Order Covid19 [facility]Now [facility] SARS-CoV-2, RNA, NAAT (NEGATIVE) SARS-CoV-2 Ag (Rapid) (Negative) Blood Type O Positive Antibody Screen NEGATIVE 10/27/20 10/27/20 10/27/20 Range/Units 10:38 09:50 09:50 WBC (4.8-10.8) K/uL RBC (4.2-5.4) M/uL Hgb (12.0-16.0) g/dL Hct (37-47) % MCV (80-100) fL MCH (25-34) pg MCHC (32-36) g/dL RDW Std Deviation (36.4-46.3) fL RDW Coeff of Jose (11.5-14.5) % Plt Count (130-400) K/uL MPV (7.4-10.4) fL Immature Gran % (Auto) % Neut % (Auto) % Lymph % (Auto) % [place] % (Auto) % Eos % (Auto) % Baso % (Auto) % Neut # (Auto) (1.4-6.5) K/uL Lymph # (Auto) (1.2-3.4) K/uL [place] # (Auto) (0.11-0.59) K/uL Eos # (Auto) (0-0.5) K/uL Baso # (Auto) (0-0.2) K/uL Immature Gran # (Auto) (0.00-0.02) K/uL PT 10.3 (9.0-12.0) Seconds INR 1.0 (0.9-1.1) APTT 26.2 (21.0-31.0) Seconds PTT Ratio 0.9 Sodium 139 (136-145) mmol/L Potassium 4.5 (3.5-5.1) mmol/L Chloride 108 H (98-107) mmol/L Carbon Dioxide 25 (21-32) mmol/L Anion Gap 5.0 (3-11) BUN 13 (7-18) mg/dl Creatinine 1.01 (0.6-1.2) mg/dl Est Cr Clr Drug Dosing 60.3 ml/min Est GFR ( Amer) 75.2 Est GFR (Non-Af Amer) 64.9 BUN/Creatinine Ratio 12.4 (10-20) Glucose 121 H (70-99) mg/dl Calcium 8.8 (8.5-10.1) mg/dl Total Bilirubin 0.4 (0.2-1) mg/dl AST 18 (15-37) U/L ALT 19 (12-78) U/L Alkaline Phosphatase 154 H (45-117) U/L Troponin I < 0.015 (0-0.045) ng/ml Total Protein 7.8 (6.4-8.2) gm/dl Albumin 3.1 L (3.4-5.0) gm/dl Globulin 4.7 H (2.5-4.0) gm/dl Albumin/Globulin Ratio 0.7 L (0.9-2) Lipase 51 L (73-393) U/L 25-OH Vitamin D Total (30-100) ng/ml COVID-19 Eval Order SARS-CoV-2, RNA, NAAT (NEGATIVE) SARS-CoV-2 Ag (Rapid) Negative (Negative) Blood Type Antibody Screen 10/27/20 Range/Units 09:50 WBC 13.35 H (4.8-10.8) K/uL RBC 4.27 (4.2-5.4) M/uL Hgb 12.8 (12.0-16.0) g/dL Hct 38.8 (37-47) % MCV 90.9 (80-100) fL MCH 30.0 (25-34) pg MCHC 33.0 (32-36) g/dL RDW Std Deviation 47.0 H (36.4-46.3) fL RDW Coeff of Jose 14.3 (11.5-14.5) % Plt Count 280 (130-400) K/uL MPV 10.1 (7.4-10.4) fL Immature Gran % (Auto) 0.1 % Neut % (Auto) 92.2 % Lymph % (Auto) 6.6 % [place] % (Auto) 1.1 % Eos % (Auto) 0.0 % Baso % (Auto) 0.0 % Neut # (Auto) 12.30 H (1.4-6.5) K/uL Lymph # (Auto) 0.88 L (1.2-3.4) K/uL [place] # (Auto) 0.15 (0.11-0.59) K/uL Eos # (Auto) 0.00 (0-0.5) K/uL Baso # (Auto) 0.00 (0-0.2) K/uL Immature Gran # (Auto) 0.02 (0.00-0.02) K/uL PT (9.0-12.0) Seconds INR (0.9-1.1) APTT (21.0-31.0) Seconds PTT Ratio Sodium (136-145) mmol/L Potassium (3.5-5.1) mmol/L Chloride (98-107) mmol/L Carbon Dioxide (21-32) mmol/L Anion Gap (3-11) BUN (7-18) mg/dl Creatinine (0.6-1.2) mg/dl Est Cr Clr Drug Dosing ml/min Est GFR ( Amer) Est GFR (Non-Af Amer) BUN/Creatinine Ratio (10-20) Glucose (70-99) mg/dl Calcium (8.5-10.1) mg/dl Total Bilirubin (0.2-1) mg/dl AST (15-37) U/L ALT (12-78) U/L Alkaline Phosphatase (45-117) U/L Troponin I (0-0.045) ng/ml Total Protein (6.4-8.2) gm/dl Albumin (3.4-5.0) gm/dl Globulin (2.5-4.0) gm/dl Albumin/Globulin Ratio (0.9-2) Lipase (73-393) U/L 25-OH Vitamin D Total (30-100) ng/ml COVID-19 Eval Order SARS-CoV-2, RNA, NAAT (NEGATIVE) SARS-CoV-2 Ag (Rapid) (Negative) Blood Type Antibody Screen Medications Administered Current Inpatient Medications Acetaminophen (Acetaminophen 500 Mg Tab) 1,000 mg PO Q8H PRN PRN Reason: Pain Stop: 11/26/20 12:09 Alprazolam (Alprazolam 0.25 Mg Tablet) 0.125 mg PO TID [facility] Stop: 11/26/20 13:59 Last Admin: 10/28/20 08:10 Dose: 0.125 mg Documented by: Amphetamine/Dextroamphetamine (Dextroamphetamine/Amphetamine Er 10 Mg Cap) 30 mg PO [facility] Stop: 11/11/20 08:59 Last Admin: 10/28/20 08:09 Dose: 30 mg Documented by: Aripiprazole (Aripiprazole 10 Mg Tab) 10 mg PO [facility] Stop: 11/26/20 20:59 Last Admin: 10/27/20 20:23 Dose: 10 mg Documented by: Atorvastatin Calcium (Atorvastatin 20 Mg Tab) 20 mg PO [facility] Stop: 11/26/20 20:59 Last Admin: 10/27/20 20:23 Dose: 20 mg Documented by: Bisacodyl (Bisacodyl 10 Mg Supp) 10 mg CO DAILY PRN PRN Reason: Constipation Stop: 11/26/20 12:09 Citalopram Hydrobromide (Citalopram 40 Mg Tab) 40 mg PO [facility] Stop: 11/27/20 08:59 Last Admin: 10/28/20 08:11 Dose: 40 mg Documented by: Estradiol (Estradiol 1 Mg Tab) 1 mg PO [facility] Stop: 11/27/20 08:59 Last Admin: 10/28/20 08:12 Dose: 1 mg Documented by: Cefazolin Sodium (Ancef 3000mg) 65 mls @ 130 mls/hr IV PREOP [facility]; Protocol Stop: 10/29/20 05:59 Levothyroxine Sodium (Levothyroxine Sodium 100 Mcg Tablet) [facility]: 11/27/20 06:29 Last Admin: 10/28/20 05:37 Dose: 100 mcg Documented by: Magnesium Hydroxide (Magnesium Hydroxide Susp 30 Ml Udc) 30 ml PO DAILY PRN PRN Reason: Constipation Stop: 11/26/20 12:09 Morphine Sulfate (Morphine Sulfate 2 Mg/Ml Carp) 2 mg IV Q3H PRN PRN Reason: Pain (1,2,3,4,5) & Pre PT Stop: 11/10/20 12:09 Last Admin: 10/27/20 12:54 Dose: 2 mg Documented by: Multivitamins (Multivitamin Tab) 1 tab PO [facility] Stop: 11/27/20 08:59 Last Admin: 10/28/20 08:11 Dose: 1 tab Documented by: Multivitamins/Minerals (Calcium 600mg + Vit D 400 Iu Tab) 1 tab PO [facility] Stop: 11/27/20 08:59 Last Admin: 10/28/20 08:11 Dose: 1 tab Documented by: Naloxone HCl (Naloxone Hcl 0.4 Mg/1 Ml Vial/Carp) 0.1 mg IV UD PRN PRN Reason: Opiate Overdose Stop: 11/26/20 12:09 Ondansetron HCl (Ondansetron Inj 2 Mg/Ml 2 Ml Vial) 4 mg IV Q6H PRN PRN Reason: Nausea And Vomiting Stop: 11/26/20 12:09 Oxycodone HCl (Oxycodone Hcl Ir 5 Mg Tab (Immediate Release)) 10 mg PO Q4H PRN PRN Reason: SEVERE Pain (7,8,9,10) Stop: 11/10/20 12:09 Last Admin: 10/28/20 05:37 Dose: 10 mg Documented by: Polyethylene Glycol (Polyethylene (Miralax) 17 Gm Pack) 17 gm PO UD PRN PRN Reason: Constipation Stop: 11/26/20 12:09 Rizatriptan Benzoate (Rizatriptan Benzoate 10 Mg Tab) 10 mg PO Q2H PRN PRN Reason: Migraine Headache Stop: 11/26/20 12:09 Senna/Docusate Sodium (Docusate Sodium/Senna 50/8.6mg Tab) 2 tab PO HS [facility] Stop: 11/26/20 20:59 Last Admin: 10/27/20 20:23 Dose: 2 tab Documented by: Vitamin D (Cholecalciferol 1,000 Units 25 Mcg Tab) 1,000 units PO QAM [facility] Stop: 11/27/20 08:59 Last Admin: 10/28/20 08:11 Dose: 1,000 units Documented by: (1) Closed fracture of left hip Encounter type: initial encounter Qualified Code(s): S72.002A - Fracture of unspecified part of neck of left femur, initial encounter for closed fracture
--- NOTE | 2020-10-28 11:28 | Anesthesiology Consultation ---
Date of Service October 28, 2020 Assessment & Plan (1) Encounter for pre-operative examination: Chart Review Chart Review: Acceptable Risk for Surgery History Surgery Operation Date: 10/28/20 11:00 Proposed Procedures p Left Total Hip Arthroplasty - Leonardo Ferguson MD Height/Weight Height: 5 ft 3 in Weight: 98.5 kg Allergies Allergy/AdvReac Type Severity Reaction Status Date / Time venlafaxine Allergy Unknown itchiness Verified 10/27/20 08:22 Medications Home Medications Medication Instructions Recorded Confirmed Last Taken alprazolam 0.25 mg tablet 0.125 mg PO TID tab 09/12/18 10/27/20 10/26/20 cholecalciferol (vitamin D3) 25 1,000 units PO QAM 09/12/18 10/27/20 10/26/20 mcg (1,000 unit) capsule dextroamphetamine 30 mg tablet 30 mg PO QAM tab 09/12/18 10/27/20 10/26/20 estradiol 1 mg tablet 1 mg PO QAM 09/12/18 10/27/20 10/26/20 levothyroxine 100 mcg capsule 100 mcg PO QAM 09/12/18 10/27/20 10/26/20 multivitamin 1 tab PO QAM 09/12/18 10/27/20 10/26/20 polyethylene glycol 3350 17 gram 17 gm PO UD PRN 09/12/18 10/27/20 Unknown oral powder packet rizatriptan 10 mg tablet 10 mg PO Q2H PRN 09/12/18 10/27/20 Unknown denosumab 60 mg/mL subcutaneous 60 mg SQ .q 6 month ml 11/26/18 10/27/20 03/13/19 syringe aripiprazole 10 mg tablet 10 mg PO HS 10/18/19 10/27/20 10/26/20 citalopram 40 mg tablet 40 mg PO QAM tab 04/27/20 10/27/20 10/26/20 atorvastatin 20 mg tablet 20 mg PO HS 07/29/20 10/27/20 10/26/20 calcium carbonate-vitamin D3 1 tab PO QAM 10/27/20 10/27/20 10/26/20 [Calcium + D] Active Medications Generic Name Dose Route Start Last Admin Trade Name Freq PRN Reason Stop Dose Admin Alprazolam 0.125 mg 10/27/20 14:00 10/28/20 08:10 Alprazolam 0.25 Mg Tablet PO 11/26/20 13:59 0.125 mg TID HEYDI Administration Amphetamine/Dextroamphetamine 30 mg 10/28/20 09:00 10/28/20 08:09 Dextroamphetamine/Amphetamine Er 10 Mg Cap PO 11/11/20 08:59 30 mg QAM HEYDI Administration Aripiprazole 10 mg 10/27/20 21:00 10/27/20 20:23 Aripiprazole 10 Mg Tab PO 11/26/20 20:59 10 mg HS HEYDI Administration Atorvastatin Calcium 20 mg 10/27/20 21:00 10/27/20 20:23 Atorvastatin 20 Mg Tab PO 11/26/20 20:59 20 mg HS HEYDI Administration Citalopram Hydrobromide 40 mg 10/28/20 09:00 10/28/20 08:11 Citalopram 40 Mg Tab PO 11/27/20 08:59 40 mg QAM HEYDI Administration Estradiol 1 mg 10/28/20 09:00 10/28/20 08:12 Estradiol 1 Mg Tab PO 11/27/20 08:59 1 mg QAM HEYDI Administration Levothyroxine Sodium 100 mcg 10/28/20 06:30 10/28/20 05:37 Levothyroxine Sodium 100 Mcg Tablet PO 11/27/20 06:29 100 mcg DAILYBB HEYDI Administration Morphine Sulfate 2 mg 10/27/20 12:10 10/27/20 12:54 Morphine Sulfate 2 Mg/Ml Carp IV 11/10/20 12:09 2 mg Q3H PRN Administration Pain (1,2,3,4,5) & Pre PT Multivitamins 1 tab 10/28/20 09:00 10/28/20 08:11 Multivitamin Tab PO 11/27/20 08:59 1 tab QAM HEYDI Administration Multivitamins/Minerals 1 tab 10/28/20 09:00 10/28/20 08:11 Calcium 600mg + Vit D 400 Iu Tab PO 11/27/20 08:59 1 tab QAM HEYDI Administration Oxycodone HCl 10 mg 10/27/20 12:10 10/28/20 05:37 Oxycodone Hcl Ir 5 Mg Tab (Immediate Release) PO 11/10/20 12:09 10 mg Q4H PRN Administration SEVERE Pain (7,8,9,10) Senna/Docusate Sodium 2 tab 10/27/20 21:00 10/27/20 20:23 Docusate Sodium/Senna 50/8.6mg Tab PO 11/26/20 20:59 2 tab HS HEYDI Administration Vitamin D 1,000 units 10/28/20 09:00 10/28/20 08:11 Cholecalciferol 1,000 Units 25 Mcg Tab PO 11/27/20 08:59 1,000 units QAM HEYDI Administration NPO Date Last Intake of Fluids: 10/28/20 Time Last Intake of Fluids: 08:00 Last Intake of Fluids Comment: sip of water with meds Date Last Intake of Solids: 10/27/20 Past Medical History Medical History (Updated 10/28/20 @ 11:28 by Irving Beckett MD) ADD (attention deficit disorder) Bipolar disorder Cervical radiculopathy Cervicalgia Chronic migraine without aura Cochlear implant in place Depression Endometriosis Fibromyalgia Gastroesophageal reflux Hypothyroidism Myalgia and myositis Past Surgical History Surgical History History of arthroscopy of shoulder History of cholecystectomy History of colonoscopy History of laparoscopy History of mastoidectomy History of oophorectomy S/P total abdominal hysterectomy Social History Smoking Status: Never smoker Hx Alcohol Use: Yes Alcohol type: wine alcohol intake frequency: holidays/special occasions only Hx Substance Use: No Physical Exam Vital Signs Last Vital Signs Temp 37.1 C 10/28/20 07:52 Pulse 101 H 10/28/20 07:52 Resp 16 10/28/20 07:52 BP 135/79 10/28/20 07:52 Pulse Ox 94 10/28/20 07:52 Testing Laboratory Results 10/28/20 05:18 10/28/20 05:18 PT 10.3 Seconds (9.0-12.0) 10/27/20 09:50 INR 1.0 (0.9-1.1) 10/27/20 09:50 APTT 26.2 Seconds (21.0-31.0) 10/27/20 09:50 Blood Type O Positive 10/27/20 12:33 Antibody Screen NEGATIVE 10/27/20 12:33 Electrocardiogram Date: 10/27/20 Findings: + NSR @ (85) and + NSST changes
[2020-10-28] MEDS ORDERED: HYDROmorphone INJ 1 MG/ML SYRINGE IV PRN (11:51)
[2020-10-28] MEDS ORDERED: ATROPINE SULFATE 0.1 MG/ML 10ML SYR IV PRN (11:51)
[2020-10-28] MEDS ORDERED: KETOROLAC 30 MG/ML VIAL IV PRN (11:51)
[2020-10-28] MEDS ORDERED: ePHEDrine sulfate 50 MG/ML AMP IV PRN (11:51)
[2020-10-28] MEDS ORDERED: ONDANSETRON INJ 2 MG/ML 2 ML VIAL IV PRN (11:51)
[2020-10-28] MEDS ORDERED: BACITRACIN INJ 50,000 UNIT VIAL ONE (12:19)
--- NOTE | 2020-10-28 12:23 | History & Physical Bridge Note ---
Date of Service October 28, 2020 History & Physical Bridge Note I have examined the patient, reviewed the History & Physical and in the interval since the performance of the History & Physical I have noted the following changes of clinical significance: no changes noted
[2020-10-28] MEDS ORDERED: ROPIVACAINE 0.5% HCL/PF 150 MG, BUPIVACAINE 0.75% MPF 20 ML, EPINEPHrine 30MG/30ML (OR ... INFIL SCH (12:45)
[2020-10-28] MEDS ORDERED: ONDANSETRON INJ 2 MG/ML 2 ML VIAL ONE (13:15)
[2020-10-28] MEDS ORDERED: PHENYLEPHRINE 100MCG/ML 5ML SYR ONE (13:17)
--- NOTE | 2020-10-28 16:26 | Operative Report ---
Post Operative Report Pre & Post Diagnosis Operation Date: 10/28/20 11:00 Pre-Op Diagnosis: Displaced Left Femoral Neck Fracture, obesity BMI 38.5 Post-Op Diagnosis: Displaced Left Femoral Neck Fracture, obesity BMI 38.5, acetabular osteophytes possible hip impingement I identified the patient and participated in the time-out.: Yes Procedure Operation Date: 10/28/20 11:00 Actual Procedures p Left Total Hip Arthroplasty--Uncemented(Left), increased difficulty due to obesity BMI 38.5- Leonardo Ferguson MD Surgeon Leonardo Ferguson MD [employer] Runner Abrahan AQUINO Estimated Blood Loss 100 Findings Consistent with Post-Op Diagnosis Specimens Femoral head Drains 2 Hemovac Anesthesia Type MAC Spinal Regional Complications none Disposition Accompanied Patient To Recovery: No Disposition: Recovery Room Indications 50-year-old female with 2 recent falls. First fall was tripping related to wearing a walking boot for foot fracture on her left leg. She had x-rays but had no fracture of the hip at that time. She had a second fall and sustained a displaced femoral neck fracture with some comminution. Radiographically has some small osteophytes on the acetabulum's may have some impingement. Description of Procedure Patient taken to the operating room and anesthetized under spinal anesthesia and sedation. Patient was placed supine on the operating table. Exam of the involved extremity demonstrated left leg was shortened and externally rotated consistent with left hip fracture. Patient is obese thigh obese abdominal area..The patient was placed on a sacral pad and the involved leg was placed on a foot bump to flex knee 90 and hip 60. Placed a bed in some Trendelenburg and tilted the bed slightly to the right to help with acetabular exposure. Her belly fat was taped to the right side of the bed to keep the belly fat out of the field. Left hip and lower extremity was prepped and draped in sterile fashion. A Mendoza-type approach was performed to the hip. A longitudinal lateral incision was made over the hip. The skin was incised sharply. The fat was divided down to the fascia. The fat was very deep release 17 cm the and more extensive time was required to dissect tissue down to the fascia and meticulously cauterized multiple Subcutaneous bleeders. Trochanteric bursa was resected. The gluteus medius was intact. A split was made in the gluteus medius muscle between the anterior 40% and posterior 60%. The minimus was divided longitudinally reflected off the underlying capsule. The capsule was incised down to the hip joint. An incision was made through the gluteus medius leaving a cuff of tendon for repair on the greater trochanter. The vastus lateralis was split longitudinally for about 3 cm. A muscular capsular flap was elevated off the hip. The hip fracture was identified demonstrating a femoral neck fracture with some comminution. the femoral neck cut was made approximately 15 mm proximal to the lesser trochanter in neutral anteversion which was below the level of the fracture. No fracture lines are noted at this level.. Head and neck fragment were removed using a corkscrew and hip skid device.. The femoral head demonstrated normal appearance and measured at 44 mm.. A self-retaining superior tractor was impacted into the ilium, a blunt H ni retractor was placed anteriorly a double angled inferior retractor was placed on the ischium. The acetabulum demonstrated posterior superior and superior and anterior superior osteophytes that could have caused hip impingement. Mild arthritic changes noted.. The acetabular labrum was resected all osteophytes were resected.The soft tissue in the acetabular fossa was resected. An anterior capsular release was performed. Some the anterior capsule was released for exposure. The first reamer was used to medialize reaming to the inner table and then sequential reamers for the acetabulum were used in 2 mm increments up to a size 50 mm cup. Trial reduction was performed with stable fixation.. I used the [employer] total hip arthroplasty system using a 50 mm Trident 2 Tritanium cluster hole acetabular shell type cup. The placement of the final implant was performed after irrigating the acetabulum with antibiotic solution with pulsatile lavage. The position of the cup was approximately 15 anteversion 45 abduction. Good fixation was performed. Two 6.5 mm cancellus screws were placed in the posterior superior quadrant for further fixation through the cup. The acetabular liner was impacted into position. The Trident x-ray polyethylene 0 degree 36 mm inner diameter acetabular liner was used.The Orthomix coctail injected into the capsule around the acetabular component and deeper muscles. The retractors removed and attention was taken to the femur. The femur was exposed with flexion external rotation. Had to extend the skin incision proximally due to the deep fat and requirement for more exposure making a longer incision. A Canal reamer was used followed by sequential tapered Accolade 2 broaches up to a size 4 . This had a good fit and fill. Trial reduction was performed with a 132 degree neck angle based on preoperative templating. A + 0 neck length gave equal leg lengths and stable range of motion through full flexion flexion adduction and internal rot ation and extension and external rotation. The trials removed and after irrigation again and the final implant was impacted which was the Accolade 2 size 4 with 132 degree neck angle 105 mm stem length V 40 taper shoes . The Biolox ceramic head size 36 mm +0 neck length was used. After final implants replaced the reduction was noted to be stable. Betadine soak was used per protocol. 2 drains were placed deep. These were brought out laterally and connected to Hemovac. The minimus was closed with interrupted [id number] #1 Vicryl sutures. The minimus was repaired to the greater trochanter with transosseous #5 FiberWire with Harshad-Derrick suture technique. The medius was closed with transosseous #5 FiberWire sutures using Harshad Derrick suture technique. Lateral row soft tissue repair was performed with figure of 8 #2 FiberWire sutures. The medius split was closed with interrupted [id number] #1 Vicryl sutures. The vastus lateralis was closed with interrupted figure of eight #1Vicryl sutures. The fascia lupe was closed with interrupted figure of eight #1 Vicryl sutures. The fat was closed with large curved needle [id number] #2 Vicryl sutures. Superficially with interrupted 2-0 Vicryl sutures in multiple layers to close the space. Skin was closed with cosmo and sterile dressings were applied including a superficial wound VAC. There was increased difficulty of the procedure due to the fat over hip area which required a least 1 hour additional time surgery due to increased time for exposure and closure and increased difficulty of exposure performing the procedure. The patient tolerated procedure well. Abrahan AQUINO my physician respiratory equipment assistant assisted me in the procedure with patient positioning And draping soft tissue retraction instrument management suture management and assisted in the outer layer closure and will participate in the postoperative care the patient. I attest to the content of the Intraoperative Record and any orders documented therein. Any exceptions are noted below.
--- NOTE | 2020-10-28 16:35 | Anesthesiology Progress Note ---
Date of Service October 28, 2020 Anesthesia Post Procedure Vital Signs Vital Signs: Temp Pulse Pulse Resp BP Pulse Ox 10/28/20 16:25 109 H 17 108/66 96 10/28/20 16:16 36.3 C L 107 H 16 112/66 96 10/28/20 11:45 36.7 C 74 18 121/72 92 10/28/20 11:32 36.2 C L 105 H 20 137/89 95 10/28/20 07:52 37.1 C 101 H 16 135/79 94 10/27/20 23:17 36.8 C 97 H 16 115/80 92 Pain Intensity Left Hip: Pain Intensity: 5 Transfer of Care Handoff Completed per policy Notes Mental Status: alert / awake / arousable and participated in evaluation Patient Amnestic to Procedure: Yes Nausea / Vomiting: adequately controlled Pain: adequately controlled Airway Patency, RR, SpO2: stable & adequate BP & HR: stable & adequate Hydration State: stable & adequate Neuraxial Anesthesia: was administered and sensory block is resolving Anesthetic Complications: no major complications apparent and Pt Satisfied with anesthetic care
--- NOTE | 2020-10-28 16:48 | XRay Report ---
XR hip 1V LT w pelvis CLINICAL HISTORY: Postoperative evaluation. COMPARISON: Left femur radiographs October 27, 2020. FINDINGS: Alignment of the total left hip arthroplasty is anatomic. There is no periprosthetic fract ure or unexpected radiopaque foreign body. Acetabular screws are noted as well as skin cosmo and dolan rgical drains. IMPRESSION: Expected findings following total left hip arthroplasty. ACT 112: Negative or not required by law. Electronically signed by: Nam Perdomo M.D. 10/28/2020 4:46 PM
[2020-10-28] MEDS ORDERED: MAGNESIUM HYDROXIDE SUSP 30 ML UDC PO PRN (17:26)
[2020-10-28] MEDS ORDERED: HYDROmorphone INJ 0.5 MG/0.5 ML SYR IV PRN (17:26)
[2020-10-28] MEDS ORDERED: NALOXONE HCL 0.4 MG/1 ML VIAL/CARP IV PRN (17:26)
[2020-10-28] MEDS ORDERED: bisacodyL 10 MG SUPP PR PRN (17:26)
[2020-10-28] MEDS: SODIUM CHLORIDE 0.9% 1000ML 1,000 ML IV SCH (18:42)
[2020-10-28] MEDS: ceFAZolin 2000MG 2,000 MG/15 ML SYR IV SCH (22:04)
[2020-10-28] MEDS: ACETAMINOPHEN 500 MG TAB PO PRN (22:04)
[2020-10-28] MEDS: ARIPiprazole 10 MG TAB PO SCH (22:04)
[2020-10-28] MEDS: ATORVASTATIN 20 MG TAB PO SCH (22:05)
[2020-10-28] MEDS: DOCUSATE SODIUM/SENNA 50/8.6MG TAB PO SCH ×2 (22:05→22:10)
[2020-10-28] MEDS: ASPIRIN 81 MG ECTAB PO SCH (22:05)
[2020-10-28] MEDS: DOCUSATE SODIUM 100 MG CAP PO SCH (22:05)
[2020-10-28] MEDS: SENNA 8.6 MG TAB PO SCH (22:06)
[2020-10-29] MEDS: ceFAZolin 2000MG 2,000 MG/15 ML SYR IV SCH (03:41)
[2020-10-29] MEDS: SODIUM CHLORIDE 0.9% 1000ML 1,000 ML IV SCH ×2 (03:42→14:46)
[2020-10-29 05:08] LABS: Hematocrit (blood only) 28.8 % (37-47); Hemoglobin 9.4 g/dL (12.0-16.0); Immature Granulocytes # (auto) 0.01 K/uL (0.00-0.02); Immature Granulocytes % (auto) 0.1 %; Lymphocytes # (auto) 0.56 K/uL (1.2-3.4); Lymphocytes % (auto) 6.3 %; Mean Corpuscular Hemoglobin 29.7 pg (25-34); Mean Corpuscular Hgb Conc 32.6 g/dL (32-36); Mean Corpuscular Volume 90.9 fL (80-100); Mean Platelet Volume 10.5 fL (7.4-10.4); Monocytes # (auto) 0.56 K/uL (0.11-0.59); Monocytes % (auto) 6.3 %; Neutrophils # (auto) 7.79 K/uL (1.4-6.5); Neutrophils % (auto) 87.3 %; Platelet Count 230 K/uL (130-400); RDW Coefficient of Variation 14.2 % (11.5-14.5); RDW Standard Deviation 47.4 fL (36.4-46.3); Red Blood Count 3.17 M/uL (4.2-5.4); White Blood Count 8.92 K/uL (4.8-10.8)
[2020-10-29 05:36] LABS: BUN Creatinine Ratio 19.1 (10-20); Calcium 7.9 mg/dl (8.5-10.1); Creatinine Clr Calc Pharmacy 69.1 ml/min; Est GFR (African American) 68.5; Est GFR (Non-African American) 59.1; Potassium 4.1 mmol/L (3.5-5.1)
[2020-10-29] MEDS: LEVOTHYROXINE SODIUM 100 MCG TABLET PO SCH (05:54)
--- NOTE | 2020-10-29 08:26 | Orthopedic Progress Note ---
Date of Service October 29, 2020 Assessment & Plan (1) Closed fracture of left hip: POD#1 Left MIRIAM -PT/OT-no abductor strengthening, WBAT with walker -Pain management -DVT prophylaxis-SCDs, ASA 81mg BID -AM labs- hemoglobin 9.4, acute blood loss anemia likely due to surgical loss vs dilutional effect -D/C planning-home with home health vs inpatient rehab Admission and Anticipated Discharge Date Admission Date: October 27, 2020 Subjective Patient is POD#1 left MIRIAM due to fracture. She is doing well, pain well controlled. No complaints. Denies chest pain, sob, ross, fever, chills, n/v/d. Review of Systems Review of Systems: All systems reviewed & are unremarkable except as noted in HPI & below Physical Exam Physical Exam: Left hip Prevena wound vac is c/d/i, no calf tenderness. Good dorsiflexion. No pain with gentle log roll, leg lengths equal. Distally n/v status and sensaiton are intact. Constitutional: well developed and well nourished Results & Data ([facility]) Vital Signs (Past 12 Hours) Vital Signs Temp Pulse Resp BP Pulse Ox 10/29/20 07:07 36.7 C 73 16 96/67 L 92 10/29/20 03:25 36.7 C 89 18 104/68 96 10/28/20 23:00 37.3 C 96 H 18 108/72 94 (1) Closed fracture of left hip Encounter type: initial encounter Qualified Code(s): S72.002A - Fracture of unspecified part of neck of left femur, initial encounter for closed fracture
[2020-10-29] MEDS: CHOLECALCIFEROL 1,000 UNITS 25 MCG TAB PO SCH (09:00)
[2020-10-29] MEDS: MULTIVITAMIN TAB PO SCH (09:00)
[2020-10-29] MEDS: estradioL 1 MG TAB PO SCH (09:00)
[2020-10-29] MEDS ORDERED: MULTIVITAMIN TAB PO SCH (09:00)
[2020-10-29] MEDS: CALCIUM 600MG + VIT D 400 IU TAB PO SCH (09:01)
[2020-10-29] MEDS: CITALOPRAM 40 MG TAB PO SCH (09:01)
[2020-10-29] MEDS: ASPIRIN 81 MG ECTAB PO SCH ×2 (09:01→20:30)
[2020-10-29] MEDS: DOCUSATE SODIUM 100 MG CAP PO SCH ×2 (09:01→20:30)
[2020-10-29] MEDS: ALPRAZolam 0.25 MG TABLET PO SCH ×3 (09:12→20:30)
--- NOTE | 2020-10-29 10:04 | Hospitalist Progress Note ---
Date of Service October 29, 2020 Assessment & Plan (1) Closed fracture of left hip: s/ p mechanical fall -tripped and lost balanced landed on her left side . Xray of hip - Acute displaced Left femoral neck fracture Ortho eval appreciated Now pt is s/p Left MIRIAM (10/28/20) w/ Dr. Ferguson PT/OT eval DVT ppx - SCDs, ASA 81 mg bid Dispo- [facility] Acute blood loss anemia current Hgb 9.4, post-op and component of dilution d/t IVF, expected, no need for transfusion at this point Hypothyroidism : cont Levothyroxine DVT PROPHYLAXIS : SCD and teds , ASA 81 mg bid (per ortho) CODE status : full code DISPOSITION : PT/OT eval post hip surgery discharge planning will be determined depending on pt's recovery after orthopedics surgery , likely dc [facility] Admission and Anticipated Discharge Date Admission Date: October 27, 2020 Subjective Pt seen in follow up of left hip fx s/p MIRIAM yesterday. She is laying in bed in NAD, no acute events overnight. Pain well controlled. Denies chest pain, sob, ross, fever, chills, n/v/d. No BM, but passes gas. Review of Systems Review of Systems: All systems reviewed & are unremarkable except as noted in HPI & below Constitutional: no fever and no chills Respiratory: no cough and no dyspnea Cardiovascular: no chest pain and no palpitations Gastrointestinal: no abdominal pain, no nausea and no vomiting Physical Exam Physical Exam: Constitutional: WD/WN, vitals as above Eyes: PERRL, conjunctivae normal, anicteric sclerae ENMT: external ear and nose normal, oropharynx normal Neck: trachea midline, no thyromegaly Respiratory: normal respiratory effort, lungs clear to auscultation Cardiovascular: RRR, no murmur, no edema Gastrointestinal (Abdomen): normal bowel sounds, soft, nontender Musculoskeletal: Hip: + serosang. fluid in drain noted, no sign. edema, ice pack placed over surg. site Skin: no rashes, warm and dry Neurologic: PERRL, EOMI, no face palsy, no dysarthria Psychiatric: A+Ox3, euthymic affect Results & Data Results & Data ([facility]) Vital Signs (Past 12 Hours) Vital Signs Temp Pulse Resp BP Pulse Ox 10/29/20 07:07 36.7 C 73 16 96/67 L 92 10/29/20 03:25 36.7 C 89 18 104/68 96 10/28/20 23:00 37.3 C 96 H 18 108/72 94 Laboratory Results 10/29/20 10/29/20 Range/Units 04:39 04:39 WBC 8.92 (4.8-10.8) K/uL RBC 3.17 L (4.2-5.4) M/uL Hgb 9.4 L (12.0-16.0) g/dL Hct 28.8 L (37-47) % MCV 90.9 (80-100) fL MCH 29.7 (25-34) pg MCHC 32.6 (32-36) g/dL RDW Std Deviation 47.4 H (36.4-46.3) fL RDW Coeff of Jose 14.2 (11.5-14.5) % Plt Count 230 (130-400) K/uL MPV 10.5 H (7.4-10.4) fL Immature Gran % (Auto) 0.1 % Neut % (Auto) 87.3 % Lymph % (Auto) 6.3 % Ponce % (Auto) 6.3 % Eos % (Auto) 0.0 % Baso % (Auto) 0.0 % Neut # (Auto) 7.79 H (1.4-6.5) K/uL Lymph # (Auto) 0.56 L (1.2-3.4) K/uL Ponce # (Auto) 0.56 (0.11-0.59) K/uL Eos # (Auto) 0.00 (0-0.5) K/uL Baso # (Auto) 0.00 (0-0.2) K/uL Immature Gran # (Auto) 0.01 (0.00-0.02) K/uL Sodium 137 (136-145) mmol/L Potassium 4.1 (3.5-5.1) mmol/L Chloride 108 H (98-107) mmol/L Carbon Dioxide 25 (21-32) mmol/L Anion Gap 4.0 (3-11) BUN 21 H (7-18) mg/dl Creatinine 1.09 (0.6-1.2) mg/dl Est Cr Clr Drug Dosing 69.1 ml/min Est GFR ( Amer) 68.5 Est GFR (Non-Af Amer) 59.1 BUN/Creatinine Ratio 19.1 (10-20) Glucose 128 H (70-99) mg/dl Calcium 7.9 L (8.5-10.1) mg/dl Medications Administered Current Inpatient Medications Acetaminophen (Acetaminophen 500 Mg Tab) 1,000 mg PO Q8H PRN PRN Reason: Pain Stop: 11/26/20 12:09 Last Admin: 10/28/20 22:04 Dose: 1,000 mg Documented by: Alprazolam (Alprazolam 0.25 Mg Tablet) 0.125 mg PO TID REPLACED BY [facility] Stop: 11/26/20 13:59 Last Admin: 10/29/20 09:12 Dose: 0.125 mg Documented by: Amphetamine/Dextroamphetamine (Dextroamphetamine/Amphetamine Er 10 Mg Cap) [facility] Stop: 11/11/20 08:59 Last Admin: 10/28/20 08:09 Dose: 30 mg Documented by: Aripiprazole (Aripiprazole 10 Mg Tab) 10 mg PO [facility] Stop: 11/26/20 20:59 Last Admin: 10/28/20 22:04 Dose: 10 mg Documented by: Aspirin (Aspirin 81 Mg Ectab) 81 mg PO BID REPLACED BY [facility] Stop: 11/27/20 20:59 Last Admin: 10/29/20 09:01 Dose: 81 mg Documented by: Atorvastatin Calcium (Atorvastatin 20 Mg Tab) 20 mg PO [facility] Stop: 11/26/20 20:59 Last Admin: 10/28/20 22:05 Dose: 20 mg Documented by: Bisacodyl (Bisacodyl 10 Mg Supp) 10 mg [place] DAILY PRN PRN Reason: Constipation Stop: 11/26/20 12:09 Citalopram Hydrobromide (Citalopram 40 Mg Tab) 40 mg PO [facility] Stop: 11/27/20 08:59 Last Admin: 10/29/20 09:01 Dose: 40 mg Documented by: Docusate Sodium (Docusate Sodium 100 Mg Cap) 100 mg PO BID REPLACED BY [facility] Stop: 11/27/20 20:59 Last Admin: 10/29/20 09:01 Dose: 100 mg Documented by: Estradiol (Estradiol 1 Mg Tab) [facility] Stop: 11/27/20 08:59 Last Admin: 10/29/20 09:00 Dose: 1 mg Documented by: Hydromorphone HCl (Hydromorphone Inj 0.5 Mg/0.5 Ml Syr) 0.5 mg IV Q4H PRN PRN Reason: Pain or Pre PT Stop: 11/11/20 17:25 Sodium Chloride (Nss 1000ml) 1,000 mls @ 100 mls/hr IV .Q10H REPLACED BY [facility] Stop: 11/27/20 17:25 Last Admin: 10/29/20 03:42 Dose: 100 mls/hr Documented by: Levothyroxine Sodium (Levothyroxine Sodium 100 Mcg Tablet) 100 mcg PO DAILYBB REPLACED BY [facility] Stop: 11/27/20 06:29 Last Admin: 10/29/20 05:54 Dose: 100 mcg Documented by: Magnesium Hydroxide (Magnesium Hydroxide Susp 30 Ml Udc) 30 ml PO DAILY PRN PRN Reason: Constipation Stop: 11/26/20 12:09 Morphine Sulfate (Morphine Sulfate 2 Mg/Ml Carp) 2 mg IV Q3H PRN PRN Reason: Pain (1,2,3,4,5) & Pre PT Stop: 11/10/20 12:09 Last Admin: 10/27/20 12:54 Dose: 2 mg Documented by: Multivitamins (Multivitamin Tab) 1 tab PO [facility] Stop: 11/27/20 08:59 Last Admin: 10/29/20 09:00 Dose: 1 tab Documented by: Multivitamins/Minerals (Calcium 600mg + Vit D 400 Iu Tab) 1 tab PO [facility] Stop: 11/27/20 08:59 Last Admin: 10/29/20 09:01 Dose: 1 tab Documented by: Naloxone HCl (Naloxone Hcl 0.4 Mg/1 Ml Vial/Carp) 0.1 mg IV UD PRN PRN Reason: Opiate Overdose Stop: 11/26/20 12:09 Naloxone HCl (Naloxone Hcl 0.4 Mg/1 Ml Vial/Carp) 0.1 mg IV Q5M PRN PRN Reason: Oversedation/Resp Depression Stop: 11/27/20 17:25 Ondansetron HCl (Ondansetron Inj 2 Mg/Ml 2 Ml Vial) 4 mg IV Q6H PRN PRN Reason: Nausea And Vomiting Stop: 11/26/20 12:09 Oxycodone HCl (Oxycodone Hcl Ir 5 Mg Tab (Immediate Release)) 10 mg PO Q4H PRN PRN Reason: SEVERE Pain (7,8,9,10) Stop: 11/10/20 12:09 Last Admin: 10/28/20 05:37 Dose: 10 mg Documented by: Polyethylene Glycol (Polyethylene (Miralax) 17 Gm Pack) 17 gm PO UD PRN PRN Reason: Constipation Stop: 11/26/20 12:09 Rizatriptan Benzoate (Rizatriptan Benzoate 10 Mg Tab) 10 mg PO Q2H PRN PRN Reason: Migraine Headache Stop: 11/26/20 12:09 Senna/Docusate Sodium (Docusate Sodium/Senna 50/8.6mg Tab) 2 tab PO [facility] Stop: 11/26/20 20:59 Last Admin: 10/28/20 22:10 Dose: Not Given Documented by: Sennosides (Senna 8.6 Mg Tab) 17.2 mg PO HS REPLACED BY [facility] Stop: 11/27/20 20:59 Last Admin: 10/28/20 22:06 Dose: Not Given Documented by: Vitamin D (Cholecalciferol 1,000 Units 25 Mcg Tab) 1,000 units PO QAM REPLACED BY [facility] Stop: 11/27/20 08:59 Last Admin: 10/29/20 09:00 Dose: 1,000 units Documented by: (1) Closed fracture of left hip Encounter type: initial encounter Qualified Code(s): S72.002A - Fracture of unspecified part of neck of left femur, initial encounter for closed fracture
[2020-10-29] MEDS: oxyCODONE HCL IR 5 MG TAB (IMMEDIATE RELEASE) PO PRN ×2 (11:59→16:40)
[2020-10-29] MEDS: DEXTROAMPHETAMINE/AMPHETAMINE ER 10 MG CAP PO SCH (11:59)
[2020-10-29] MEDS: DOCUSATE SODIUM/SENNA 50/8.6MG TAB PO SCH (20:30)
[2020-10-29] MEDS: ARIPiprazole 10 MG TAB PO SCH (20:30)
[2020-10-29] MEDS: SENNA 8.6 MG TAB PO SCH (20:30)
[2020-10-29] MEDS: ATORVASTATIN 20 MG TAB PO SCH (20:30)
[2020-10-30 05:34] LABS: Basophils # (auto) 0.01 K/uL (0-0.2); Basophils % (auto) 0.1 %; Eosinophils # (auto) 0.29 K/uL (0-0.5); Eosinophils % (auto) 3.5 %; Hematocrit (blood only) 28.3 % (37-47); Immature Granulocytes # (auto) 0.02 K/uL (0.00-0.02); Immature Granulocytes % (auto) 0.2 %; Lymphocytes # (auto) 1.21 K/uL (1.2-3.4); Lymphocytes % (auto) 14.6 %; Mean Corpuscular Hgb Conc 31.8 g/dL (32-36); Mean Corpuscular Volume 91.3 fL (80-100); Mean Platelet Volume 9.7 fL (7.4-10.4); Monocytes # (auto) 0.74 K/uL (0.11-0.59); Monocytes % (auto) 8.9 %; Neutrophils # (auto) 6.02 K/uL (1.4-6.5); Neutrophils % (auto) 72.7 %; Platelet Count 213 K/uL (130-400); RDW Coefficient of Variation 14.4 % (11.5-14.5); RDW Standard Deviation 47.9 fL (36.4-46.3); White Blood Count 8.29 K/uL (4.8-10.8)
[2020-10-30] MEDS: LEVOTHYROXINE SODIUM 100 MCG TABLET PO SCH (05:43)
[2020-10-30 06:02] LABS: BUN Creatinine Ratio 22.8 (10-20); Creatinine Clr Calc Pharmacy 84.6 ml/min; Est GFR (African American) 87.6; Est GFR (Non-African American) 75.6; Potassium 3.7 mmol/L (3.5-5.1)
[2020-10-30 06:03] LABS: Phosphorus 2.7 mg/dl (2.5-4.9)
--- NOTE | 2020-10-30 09:42 | Orthopedic Progress Note ---
Date of Service October 30, 2020 Assessment & Plan (1) Closed fracture of left hip: POD#2 Left MIRIAM -PT/OT-no abductor strengthening, WBAT with walker -Pain management -DVT prophylaxis-SCDs, ASA 81mg BID -AM labs- hemoglobin 9.0, acute blood loss anemia likely due to surgical loss vs dilutional effect -D/C planning- [facility] today if ok with Med Service Admission and Anticipated Discharge Date Admission Date: October 27, 2020 Subjective POD 2 s/p L MIRIAM Pt sitting in her chair at bedside. No complaints. Pain controlled. Denies SOB, CP,LH. Physical Exam Physical Exam: Prevena intact. Small amt of drainage in tubing. Minimal drainage from HV. Thigh with some swelling but soft. Calves soft, NT. NV intact. Toes mobile. Leg lengths appear equal. Results & Data ([facility]) Vital Signs (Past 12 Hours) Vital Signs Temp Pulse Resp BP Pulse Ox 10/30/20 07:15 36.5 C 91 H 19 110/75 91 10/29/20 23:45 36.5 C 99 H 21 108/71 91 Laboratory Results Laboratory Results WBC 8.29 K/uL (4.8-10.8) 10/30/20 05:27 RBC 3.10 M/uL (4.2-5.4) L 10/30/20 05:27 Hgb 9.0 g/dL (12.0-16.0) L 10/30/20 05:27 Hct 28.3 % (37-47) L 10/30/20 05:27 MCV 91.3 fL (80-100) 10/30/20 05:27 MCH 29.0 pg (25-34) 10/30/20 05:27 MCHC 31.8 g/dL (32-36) L 10/30/20 05:27 RDW Std Deviation 47.9 fL (36.4-46.3) H 10/30/20 05:27 RDW Coeff of Jose 14.4 % (11.5-14.5) 10/30/20 05:27 Plt Count 213 K/uL (130-400) 10/30/20 05:27 MPV 9.7 fL (7.4-10.4) 10/30/20 05:27 Immature Gran % (Auto) 0.2 % 10/30/20 05:27 Neut % (Auto) 72.7 % 10/30/20 05:27 Lymph % (Auto) 14.6 % 10/30/20 05:27 Billings % (Auto) 8.9 % 10/30/20 05:27 Eos % (Auto) 3.5 % 10/30/20 05:27 Baso % (Auto) 0.1 % 10/30/20 05:27 Neut # (Auto) 6.02 K/uL (1.4-6.5) 10/30/20 05:27 Lymph # (Auto) 1.21 K/uL (1.2-3.4) 10/30/20 05:27 Billings # (Auto) 0.74 K/uL (0.11-0.59) H 10/30/20 05:27 Eos # (Auto) 0.29 K/uL (0-0.5) 10/30/20 05:27 Baso # (Auto) 0.01 K/uL (0-0.2) 10/30/20 05:27 Immature Gran # (Auto) 0.02 K/uL (0.00-0.02) 10/30/20 05:27 PT 10.3 Seconds (9.0-12.0) 10/27/20 09:50 INR 1.0 (0.9-1.1) 10/27/20 09:50 APTT 26.2 Seconds (21.0-31.0) 10/27/20 09:50 PTT Ratio 0.9 10/27/20 09:50 Sodium 140 mmol/L (136-145) 10/30/20 05:27 Potassium 3.7 mmol/L (3.5-5.1) 10/30/20 05:27 Chloride 105 mmol/L (98-107) 10/30/20 05:27 Carbon Dioxide 29 mmol/L (21-32) 10/30/20 05:27 Anion Gap 6.0 (3-11) 10/30/20 05:27 BUN 20 mg/dl (7-18) H 10/30/20 05:27 Creatinine 0.89 mg/dl (0.6-1.2) 10/30/20 05:27 Est Cr Clr Drug Dosing 84.6 ml/min 10/30/20 05:27 Est GFR ( Amer) 87.6 12/18/20 05:27 Est GFR (Non-Af Amer) 75.6 10/30/20 05:27 BUN/Creatinine Ratio 22.8 (10-20) H 10/30/20 05:27 Glucose 99 mg/dl (70-99) 10/30/20 05:27 Calcium 8.0 mg/dl (8.5-10.1) L 10/30/20 05:27 Phosphorus 2.7 mg/dl (2.5-4.9) 10/30/20 05:27 Magnesium 2.0 mg/dl (1.8-2.4) 10/30/20 05:27 Total Bilirubin 0.4 mg/dl (0.2-1) 10/27/20 09:50 AST 18 U/L (15-37) 10/27/20 09:50 ALT 19 U/L (12-78) 10/27/20 09:50 Alkaline Phosphatase 154 U/L (45-117) H 10/27/20 09:50 Troponin I < 0.015 ng/ml (0-0.045) 10/27/20 09:50 Total Protein 7.8 gm/dl (6.4-8.2) 10/27/20 09:50 Albumin 3.1 gm/dl (3.4-5.0) L 10/27/20 09:50 Globulin 4.7 gm/dl (2.5-4.0) H 10/27/20 09:50 Albumin/Globulin Ratio 0.7 (0.9-2) L 10/27/20 09:50 Lipase 51 U/L (73-393) L 10/27/20 09:50 25-OH Vitamin D Total 53.8 ng/ml (30-100) 10/27/20 12:33 [facility] 10/27/20 16:30 SARS-CoV-2, RNA, NAAT NEGATIVE (NEGATIVE) 10/27/20 16:30 SARS-CoV-2 Ag (Rapid) Negative (Negative) 10/27/20 10:38 Blood Type O Positive 10/27/20 12:33 Antibody Screen NEGATIVE 10/27/20 12:33 (1) Closed fracture of left hip Encounter type: initial encounter Qualified Code(s): S72.002A - Fracture of unspecified part of neck of left femur, initial encounter for closed fracture
[2020-10-30] MEDS: CALCIUM 600MG + VIT D 400 IU TAB PO SCH (10:13)
[2020-10-30] MEDS: CITALOPRAM 40 MG TAB PO SCH (10:13)
[2020-10-30] MEDS: MULTIVITAMIN TAB PO SCH (10:13)
[2020-10-30] MEDS: estradioL 1 MG TAB PO SCH (10:14)
[2020-10-30] MEDS: DOCUSATE SODIUM 100 MG CAP PO SCH (10:14)
[2020-10-30] MEDS: ASPIRIN 81 MG ECTAB PO SCH (10:14)
[2020-10-30] MEDS: CHOLECALCIFEROL 1,000 UNITS 25 MCG TAB PO SCH (10:14)
[2020-10-30] MEDS: DEXTROAMPHETAMINE/AMPHETAMINE ER 10 MG CAP PO SCH (10:22)
[2020-10-30] MEDS: ALPRAZolam 0.25 MG TABLET PO SCH (10:22)
[2020-10-30] MEDS: ACETAMINOPHEN 500 MG TAB PO PRN (10:31)
--- NOTE | 2020-10-30 10:37 | Hospitalist Progress Note ---
Date of Service October 30, 2020 Assessment & Plan (1) Closed fracture of left hip: s/ p mechanical fall -tripped and lost balanced landed on her left side . Xray of hip - Acute displaced Left femoral neck fracture Ortho eval appreciated Now pt is s/p Left MIRIAM (10/28/20) w/ Dr. Ferguson PT/OT - no abductor strengthening, WBAT with walker DVT ppx - SCDs, ASA 81 mg bid Dispo- [facility] Acute blood loss anemia current Hgb 9.0, post-op and component of dilution d/t IVF, expected, no need for transfusion at this point Hypothyroidism : cont Levothyroxine DVT PROPHYLAXIS : SCD and teds , ASA 81 mg bid (per ortho) CODE status : full code DISPOSITION : PT/OT eval post hip surgery discharge planning will be determined depending on pt's recovery after orthopedics surgery , [facility] Admission and Anticipated Discharge Date Admission Date: October 27, 2020 Subjective Pt seen in follow up of s/p L MIRIAM and other med. conditions. Pt is currently sitting up in her chair at bedside, comfortable, in NAD. Pain well-controlled. Denies shortness of breath,chest pain, dizziness, and. pain, n/v. Hgb 9.0. Review of Systems Review of Systems: All systems reviewed & are unremarkable except as noted in HPI & below Constitutional: no fever and no chills Respiratory: no cough and no dyspnea Cardiovascular: no chest pain and no palpitations Gastrointestinal: + constipation; no abdominal pain, no nausea and no vomiting Physical Exam Physical Exam: Constitutional: obese female sitting up in the chair, in NAD, WD/WN, vitals as above Eyes: PERRL, EOMI, conjunctivae normal, anicteric sclerae ENMT: external ear and nose normal, oropharynx normal Neck: trachea midline, no thyromegaly Respiratory: normal respiratory effort, lungs clear to auscultation Cardiovascular: RRR, no murmur, no edema Gastrointestinal (Abdomen): normal bowel sounds, soft, nontender Musculoskeletal: Hip: + serosang. fluid in drain noted, no sign. edema Skin: no rashes, warm and dry Neurologic: PERRL, EOMI, no face palsy, no dysarthria Psychiatric: A+Ox3, euthymic affect Results & Data Results & Data ([facility]) Vital Signs (Past 12 Hours) Vital Signs Temp Pulse Resp BP Pulse Ox 10/30/20 07:15 36.5 C 91 H 19 110/75 91 10/29/20 23:45 36.5 C 99 H 21 108/71 91 Laboratory Results 10/30/20 10/30/20 Range/Units 05:27 05:27 WBC 8.29 (4.8-10.8) K/uL RBC 3.10 L (4.2-5.4) M/uL Hgb 9.0 L (12.0-16.0) g/dL Hct 28.3 L (37-47) % MCV 91.3 (80-100) fL MCH 29.0 (25-34) pg MCHC 31.8 L (32-36) g/dL RDW Std Deviation 47.9 H (36.4-46.3) fL RDW Coeff of Jose 14.4 (11.5-14.5) % Plt Count 213 (130-400) K/uL MPV 9.7 (7.4-10.4) fL Immature Gran % (Auto) 0.2 % Neut % (Auto) 72.7 % Lymph % (Auto) 14.6 % Jewell % (Auto) 8.9 % Eos % (Auto) 3.5 % Baso % (Auto) 0.1 % Neut # (Auto) 6.02 (1.4-6.5) K/uL Lymph # (Auto) 1.21 (1.2-3.4) K/uL Jewell # (Auto) 0.74 H (0.11-0.59) K/uL Eos # (Auto) 0.29 (0-0.5) K/uL Baso # (Auto) 0.01 (0-0.2) K/uL Immature Gran # (Auto) 0.02 (0.00-0.02) K/uL Sodium 140 (136-145) mmol/L Potassium 3.7 (3.5-5.1) mmol/L Chloride 105 (98-107) mmol/L Carbon Dioxide 29 (21-32) mmol/L Anion Gap 6.0 (3-11) BUN 20 H (7-18) mg/dl Creatinine 0.89 (0.6-1.2) mg/dl Est Cr Clr Drug Dosing 84.6 ml/min Est GFR ( Amer) 87.6 Est GFR (Non-Af Amer) 75.6 BUN/Creatinine Ratio 22.8 H (10-20) Glucose 99 (70-99) mg/dl Calcium 8.0 L (8.5-10.1) mg/dl Phosphorus 2.7 (2.5-4.9) mg/dl Magnesium 2.0 (1.8-2.4) mg/dl Medications Administered Current Inpatient Medications Acetaminophen (Acetaminophen 500 Mg Tab) 1,000 mg PO Q8H PRN PRN Reason: Pain Stop: 11/26/20 12:09 Last Admin: 10/30/20 10:31 Dose: 1,000 mg Documented by: Alprazolam (Alprazolam 0.25 Mg Tablet) 0.125 mg PO TID [facility] Stop: 11/26/20 13:59 Last Admin: 10/30/20 10:22 Dose: 0.125 mg Documented by: Amphetamine/Dextroamphetamine (Dextroamphetamine/Amphetamine Er 10 Mg Cap) [facility] [place]: 11/11/20 08:59 Last Admin: 10/30/20 10:22 Dose: 30 mg Documented by: Aripiprazole (Aripiprazole 10 Mg Tab) 10 mg PO [facility] Stop: 11/26/20 20:59 Last Admin: 10/29/20 20:30 Dose: 10 mg Documented by: Aspirin (Aspirin 81 Mg Ectab) 81 mg PO BID [facility] Stop: 11/27/20 20:59 Last Admin: 10/30/20 10:14 Dose: 81 mg Documented by: Atorvastatin Calcium (Atorvastatin 20 Mg Tab) 20 mg PO [facility] Stop: 11/26/20 20:59 Last Admin: 10/29/20 20:30 Dose: 20 mg Documented by: Bisacodyl (Bisacodyl 10 Mg Supp) 10 mg [place] DAILY PRN PRN Reason: Constipation Stop: 11/26/20 12:09 Citalopram Hydrobromide (Citalopram 40 Mg Tab) 40 mg [facility] Stop: 11/27/20 08:59 Last Admin: 10/30/20 10:13 Dose: 40 mg Documented by: Docusate Sodium (Docusate Sodium 100 Mg Cap) 100 mg PO BID [facility] Stop: 11/27/20 20:59 Last Admin: 10/30/20 10:14 Dose: 100 mg Documented by: Estradiol (Estradiol 1 Mg Tab) 1 mg PO [facility] Stop: 11/27/20 08:59 Last Admin: 10/30/20 10:14 Dose: 1 mg Documented by: Hydromorphone HCl (Hydromorphone Inj 0.5 Mg/0.5 Ml Syr) 0.5 mg IV Q4H PRN PRN Reason: Pain or Pre PT Stop: 11/11/20 17:25 Levothyroxine Sodium ([facility]othyroxine Sodium 100 Mcg Tablet) [facility]: 11/27/20 06:29 Last Admin: 10/30/20 05:43 Dose: 100 mcg Documented by: Magnesium Hydroxide (Magnesium Hydroxide Susp 30 Ml Udc) 30 ml PO DAILY PRN PRN Reason: Constipation Stop: 11/26/20 12:09 Morphine Sulfate (Morphine Sulfate 2 Mg/Ml Carp) 2 mg IV Q3H PRN PRN Reason: Pain (1,2,3,4,5) & Pre PT Stop: 11/10/20 12:09 Last Admin: 10/27/20 12:54 Dose: 2 mg Documented by: Multivitamins (Multivitamin Tab) 1 tab PO [facility] Stop: 11/27/20 08:59 Last Admin: 10/30/20 10:13 Dose: 1 tab Documented by: Multivitamins/Minerals (Calcium 600mg + Vit D 400 Iu Tab) 1 tab PO [facility] Stop: 11/27/20 08:59 Last Admin: 10/30/20 10:13 Dose: 1 tab Documented by: Naloxone HCl (Naloxone Hcl 0.4 Mg/1 Ml Vial/Carp) 0.1 mg IV UD PRN PRN Reason: Opiate Overdose Stop: 11/26/20 12:09 Naloxone HCl (Naloxone Hcl 0.4 Mg/1 Ml Vial/Carp) 0.1 mg IV Q5M PRN PRN Reason: Oversedation/Resp Depression Stop: 11/27/20 17:25 Ondansetron HCl (Ondansetron Inj 2 Mg/Ml 2 Ml Vial) 4 mg IV Q6H PRN PRN Reason: Nausea And Vomiting Stop: 11/26/20 12:09 Oxycodone HCl (Oxycodone Hcl Ir 5 Mg Tab (Immediate Release)) 10 mg PO Q4H PRN PRN Reason: SEVERE Pain (7,8,9,10) Stop: 11/10/20 12:09 Last Admin: 10/29/20 16:40 Dose: 10 mg Documented by: Polyethylene Glycol (Polyethylene (Miralax) 17 Gm Pack) 17 gm PO UD PRN PRN Reason: Constipation Stop: 11/26/20 12:09 Rizatriptan Benzoate (Rizatriptan Benzoate 10 Mg Tab) 10 mg PO Q2H PRN PRN Reason: Migraine Headache Stop: 11/26/20 12:09 Senna/Docusate Sodium (Docusate Sodium/Senna 50/8.6mg Tab) 2 tab PO HS [facility] Stop: 11/26/20 20:59 Last Admin: 10/29/20 20:30 Dose: Not Given Documented by: Sennosides (Senna 8.6 Mg Tab) 17.2 mg PO HS [facility] Stop: 11/27/20 20:59 Last Admin: 10/29/20 20:30 Dose: Not Given Documented by: Vitamin D (Cholecalciferol 1,000 Units 25 Mcg Tab) 1,000 [facility] [place] Stop: 11/27/20 08:59 Last Admin: 10/30/20 10:14 Dose: 1,000 units Documented by: (1) Closed fracture of left hip Encounter type: initial encounter Qualified Code(s): S72.002A - Fracture of unspecified part of neck of left femur, initial encounter for closed fracture
--- NOTE | 2020-10-30 11:42 | Discharge Summary ---
Date of Service October 30, 2020 Admission HPI Per Admitting Provider This is a a 50-year-old female with past medical history of hypothyroidism, chronic migraine, GERD, presents to the ER with complaint of acute pain on the left hip. pt sustained a fall on left side yesterday afternoon as she was walking her dog and tripped , lost her balance, landed on her left side . in ER Xray of hip mildly displaced left femoral neck fracture . pt sustained a fall on left hip approx a week ago , was seen at ER , images shows no fracture , had pain and discomfort on left hip no complain of chest pain , SOB , no dizzy spell or lightheadedness no fever or chills pt is admitted to medical floor Ortho eval requested for possible surgery of left femoral neck fx Admission Exam Per Admitting Provider Constitutional: WD/WN, vitals as above Eyes: PERRL, conjunctivae normal, anicteric sclerae ENMT: external ear and nose normal, oropharynx normal Neck: trachea midline, no thyromegaly Respiratory: normal respiratory effort, lungs clear to auscultation Cardiovascular: RRR, no murmur, no edema Gastrointestinal (Abdomen): normal bowel sounds, soft, nontender, no hepatosplenomegaly Musculoskeletal: Hip: + limited ROM of hip (left hip pain ) Skin: no rashes, warm and dry Neurologic: PERRL, EOMI, accommodation nl, no face palsy, no dysarthria Psychiatric: A+Ox3, euthymic affect Principal Diagnosis Left Displaced Femoral Neck Fx Discharge Exam Constitutional: obese female sitting up in the chair, in NAD, WD/WN, vitals as above Eyes: PERRL, EOMI, conjunctivae normal, anicteric sclerae ENMT: external ear and nose normal, oropharynx normal Neck: trachea midline, no thyromegaly Respiratory: normal respiratory effort, lungs clear to auscultation Cardiovascular: RRR, no murmur, no edema Gastrointestinal (Abdomen): normal bowel sounds, soft, nontender Musculoskeletal: Hip: + serosang. fluid in drain noted (to be removed prior to dc), no sign. edema Skin: no rashes, warm and dry Neurologic: PERRL, EOMI, no face palsy, no dysarthria Psychiatric: A+Ox3, euthymic affect Discharge Data Allergies Allergy/AdvReac Type Severity Reaction Status Date / Time venlafaxine Allergy Unknown itchiness Verified 10/27/20 08:22 Consultations 10/27/20 09:08 ED Decision to Admit Stat 10/27/20 12:10 Consult Case Management - Discharge Planning Routine Consult Orthopedic Surgery Routine Procedures Performed Operation Date: 10/28/20 11:00 Actual Procedures p Left Total Hip Arthroplasty--Uncemented(Left) - Loenardo Ferguson MD Hospital Course (1) Closed fracture of left hip: Pathological fracture R femoral neck s/ p mechanical fall -tripped and lost balanced landed on her left side . Xray of hip - Acute displaced Left femoral neck fracture Ortho eval appreciated Now pt is s/p Left MIRIAM (10/28/20) w/ Dr. Ferguson PT/OT - no abductor strengthening, WBAT with walker DVT ppx - SCDs, ASA 81 mg bid Dispo- [facility] Acute blood loss anemia current Hgb 9.0, post-op and component of dilution d/t IVF, expected, no need for transfusion at this point Hypothyroidism : cont Levothyroxine DVT PROPHYLAXIS : SCD and teds , ASA 81 mg bid (per ortho) CODE status : full code DISPOSITION : PT/OT eval post hip surgery discharge planning will be determined depending on pt's recovery after orthopedics surgery , [facility] Total Time Total Time Spent Total Time Spent (In Minutes): 35 Total Time Includes: Examination of the Patient, Discharge Planning, Medication Reconciliation and Communication With Other Providers Discharge Plan Discharge Items Patient Disposition: Transfer Inpatient Rehab Fac Reason For Visit: FALL,HIP FRACTURE Discharge Diagnosis: Left Displaced Femoral Neck Fx Condition on Discharge: Good Activity: Per Instructions section Weightbearing: Left weightbearing Weightbearing Comment: as tolerated with walker Non-emergency contact: Surgeon Call non-emergency contact if: your pain is not controlled, your temperature is above 101.5, your wound has increased redness and your wound has increased drainage Follow-up/Referrals: Shonda Coles MD [Primary Care Provider] - Leonardo Ferguson MD [Surgeon] - (Follow up in 2 weeks for wound check.) Christa Gaxiola CRNP [Nurse Practitioner] - (Follow up in 6 weeks to bone density check up.) Diet: Regular Addtl Attending Provider Instructions: Please read detailed instruction below from your orthopedic doctor. Follow up with Dr. Ferguson in 2 weeks. Take Aspirin 81 mg twice a day to prevent blood clot post surgery. PT/OT- no abductor strengthening, WBAT with walker. Discharge to [facility]. For pain, you can take tylenol, for more severe pain you can take oxycodone. Addtl Sliding Joint Maker Provider Instructions: ACTIVITY RECOMMENDATIONS: SELF CARE INSTRUCTIONS AFTER TOTAL HIP REPLACEMENT Until the incision and soft tissues around your hip have healed, there is a possibility that the hip prosthesis could dislocate. A. Observe the following precautions to prevent dislocation: 1. Don't bend your hip greater than 90 degrees. 2. Avoid crossing your legs or ankles while standing or lying. 3. Sit with your feet placed 6 inches apart. 4. When sitting, keep your knees below your hips. Sit on a firm surface, avoid deep, soft chairs and couches. Use an elevated toilet seat in the bathroom. 5. Don't bend over at the waist. Use a long handled shoehorn and a sock aid to help you put on your shoes and socks. A container maker can help you brain picker objects that are too high or too low to reach. 6. Keep car riding to a minimum for at least one month after surgery. B. Your balance may be shaky for a while. Use crutches or a walker until directed by your doctor. C. Use hand rails when walking on stairs. D. Wear low heeled shoes with non-slip soles. E. Be sure that your floors are free of things that could trip you - throw rugs, electrical cords, small objects. Avoid wet and waxed floors, especially with crutches and canes. F. Try to walk several times a day with rest periods between. G. Continue with all the exercises taught to you in the hospital. Again, make walking a part of your daily routine. SPECIAL CARE INSTRUCTIONS: VERY IMPORTANT TO READ AND REVIEW A. You may still be at risk for phlebitis and blood clots. 1. Wear surgical stockings (JAMES hose) for 2 weeks after surgery to improve circulation and reduce swelling. 2. Take Aspirin 81mg twice daily for 4 weeks or as directed by your doctor. This is your blood thinner. 3. High risk patients may be prescribed a stronger blood thinner if necessary. 4. If you are on Coumadin normally, your family doctor/relay shop supervisor should monitor your blood work. Expect a phone call the day of or the day after bloodwork is drawn to adjust your dosage. B. You must take antibiotics before having dental work, bladder, bowel and other surgery. Your doctor will provide you with a permanent card to carry describing precautions. C. Call [facility] if you have a fever, redness or swelling around the incision, cloudy drainage from incision, or sudden increase in pain in your hip, not relieved by your regular pain medication. D. Please call the office at if you have any concerns or questions about your operation or recovery. * YOU MAY SHOWER, NO TUB BATHS UNTIL CLEARED BY YOUR DOCTOR. * WEAR JAMES HOSE 20 HOURS PER DAY FOR 2 WEEKS. * YOU SHOULD USE A WALKER OR CRUTCHES FOR 2-4 WEEKS. THIS WILL HELP PREVENT STRAIN ON YOUR HIP MUSCLE AND ALLOW IT TO HEAL PROPERLY. YOU MAY WEAN TO A CANE TOLERATED. * MOST PATIENTS WILL HAVE HOME NURSING FOR THERAPY. IF YOU DECIDE TO DO OUTPATIENT PHYSICAL THERAPY, PLEASE SCHEDULE THIS 3 TIMES PER WEEK. * Wound Vac Dressing - This is a large suction dressing covering your incision. This will help pull any excess drainage from the wound and allow your incision to heal properly. You may shower with this if you can keep the unit o utside of the shower. If any bleeding or leakage is noted please call your doctor's office. This will remain on your incision for 7 days and then should be removed. This can be done yourself or by the home nursing staff if applicable. The entire unit is disposable once removed. Once removed, keep incision clean and dry. If redness or drainage is noted, please call your surgeon. . FOLLOW UP VISIT: If appointment is not already scheduled: Please call [facility] to make a follow-up appointment for 2 weeks after your surgery with Dr. Ferguson. at . Pending Studies at Discharge: No Stand-Alone Forms: My [facility] [employer] Data Skilled Items Patient informed of condition?: Yes DNR: No Discharge Level of Care: Acute rehab Communicable Disease: No Discharge Prognosis: Stable Lines: None Urinary Catheter: No Medications and DC Order Prescriptions: New aspirin 81 mg Tablet,Delayed Release (Dr/Ec) 81 mg PO BID 30 Days Qty: 60 RF: 0 acetaminophen 500 mg Tablet 1,000 mg PO Q8H PRN (Reason: fever or pain) 14 Days Qty: 84 RF: 0 oxycodone 5 mg Tablet 5 mg PO Q4H MDD 6 PRN (Reason: pain) Qty: 30 RF: 0 Continued atorvastatin [Lipitor] 20 mg tablet 20 mg PO HS RF: 0 rizatriptan 10 mg tablet 10 mg PO Q2H PRN (Reason: Migraine Headache) RF: 0 alprazolam [Xanax] 0.25 mg tablet 0.125 mg PO TID RF: 0 cholecalciferol (vitamin D3) 1,000 unit capsule 1,000 units PO QAM RF: 0 dextroamphetamine 30 mg tablet 30 mg PO QAM RF: 0 estradiol 1 mg tablet 1 mg PO QAM RF: 0 levothyroxine 100 mcg capsule 100 mcg PO QAM RF: 0 multivitamin tablet 1 tab PO QAM RF: 0 polyethylene glycol 3350 [Miralax] 17 gram powder in packet 17 gm PO UD PRN (Reason: Constipation) RF: 0 citalopram 40 mg tablet 40 mg PO QAM RF: 0 denosumab [Prolia] 60 mg/mL syringe 60 mg SQ .q 6 month RF: 0 aripiprazole [Abilify] 10 mg tablet 10 mg PO HS RF: 0 calcium carbonate-vitamin D3 [Calcium + D] 600 mg(1,500mg) -200 unit Tablet 1 tab PO QAM RF: 0 Discharge Orders: Discharge Order (Routine); Ordered 10/30/20 Ordered By: Ruben Dc Admission Data Admit Date/Time: 10/27/20 10:28 Attending Provider: Ruben Dc Admit Provider: Liat Noel Primary Care Provider: Shonda Coles Other Providers: Liat Noel ; David Hopson ; Clayton Franco ; Getachew Dixon ; Trang Pruitt Thomas J ; Irene Rodriguez ; Ren Desouza ; Nikolay Vasquez ; Facundo Maciel ; Nikolay Teague Andrew J. ; Facundo Trevino ; Benedicto Williamson ; Narinder Bojorquez ; Leonardo Ferguson ; Bernard Menchaca ; Raji Moran ; Irene Forte ; Cristino Cervantes ; Juan Jose Leblanc ; Christa Gaxiola ; Imtiaz Durand ; Ledy Ornelas ; [facility]
== END 2020-10-30 14:00 | DRG 522 ==
LOC: ED 07:47 → 3N 10:28 → SUATTDRO 10:28 → 3N 11:52